=== PATIENT | female | born 1965 | race Caucasian/White ===

== ENCOUNTER → 2016-07-01 | Outpatient (CLI) | payer OTHER ==
--- NOTE | 2016-07-01 13:30 | REPMRS ---
Patient History The patient states she had a clinical breast exam in 06/2016. Family history of premenopausal breast cancer in sister at age 41. Digital Woman Screen Mammo: July 01, 2016 - Exam #: [id number] Bilateral CC and MLO view(s) were taken. Technologist: Kalyani Bhatti, Technologist Prior study comparison: January 16, 2015, digital woman screen mammo performed at [facility]. May 05, 2013, digital woman screen mammo performed at [facility]. March 30, 2012, digital woman screen mammo performed at [facility]. FINDINGS: The breast tissue is almost entirely fat. There has been no change in the appearance of the mammogram from the prior studies. There is no interval development of dominant mass, architectural distortion, or clustered microcalcification typical of malignancy. ASSESSMENT: BI-RADS/ACR category 1 mammogram. Negative. Recommendation Routine screening mammogram of both breasts in 1 year (for women over age 40). This mammogram was interpreted with the aid of an FDA-approved computer-aided dectection system. Electronically Signed By: Rasheed Mendoza MD 07/01/16 [id number]
== END ==
LOC: M WHC 10:35
PROVIDERS: ATTEND Nurse Practitioner Family
DX: Z12.31 Encounter for screening mammogram for malignant neoplasm of breast (principal); Z80.3 Family history of malignant neoplasm of breast

== ENCOUNTER → 2017-10-01 | Outpatient (CLI) | payer OTHER | LOC: M WHC 09:26 | DX: Z12.31 Encounter for screening mammogram for malignant neoplasm of breast (principal); Z80.3 Family history of malignant neoplasm of breast | CPT/HCPCS: 77067 ==

== ENCOUNTER → 2017-10-01 | Outpatient (REF) | payer OTHER | LOC: M SFHCWAGY 09:58 | DX: Z12.4 Encounter for screening for malignant neoplasm of cervix (principal) ==

== ENCOUNTER → 2018-10-04 | Outpatient (REF) | payer OTHER ==
[2018-10-07 14:51] LABS: HPV HYBRID CAPTURE II Negative (Negative)
== END ==
LOC: M SFHCWAGY 10:36
PROVIDERS: ATTEND Nurse Practitioner Family
DX: Z12.4 Encounter for screening for malignant neoplasm of cervix (principal)
CPT/HCPCS: 87624; G0123

== ENCOUNTER → 2018-10-04 | Outpatient (CLI) | payer OTHER ==
--- NOTE | 2018-10-04 12:27 | REPMRS ---
Patient History The patient states she had a clinical breast exam in 10/2018. Family history of premenopausal breast cancer at age 41 in sister, ovarian cancer at age 50 or over in mother. No Hormone Replacement Therapy 3D TOMOSYNTHESIS WAS PERFORMED. Digital Woman Screen Mammo: October 04, 2018 - Exam #: [id number] Bilateral CC and MLO view(s) were taken. Technologist: Kalyani Bhatti, Technologist Prior study comparison: October 01, 2017, digital woman screen mammo performed at [facility]. July 01, 2016, digital woman screen mammo performed at [facility]. FINDINGS: There are scattered fibroglandular densities. There has been no change in the appearance of the mammogram from the prior studies. There is a mild amount of residual fibroglandular tissue which is fairly symmetric. There is no interval development of dominant mass, architectural distortion, or clustered microcalcification suggestive of malignancy. Assessment: BI-RADS/ACR category 1 mammogram. Negative Mammogram. Recommendation Routine screening mammogram in 1 year (for women over age 40). This mammogram was interpreted with the aid of an FDA-approved computer-aided dectection system. Electronically Signed By: Messi Karimi MD 10/04/18 [id number]
== END ==
LOC: M WHC 10:14
PROVIDERS: ATTEND Nurse Practitioner Family
DX: Z12.31 Encounter for screening mammogram for malignant neoplasm of breast (principal); Z80.3 Family history of malignant neoplasm of breast

== ENCOUNTER → 2018-12-16 | Outpatient (REF) | payer OTHER | LOC: M LAB LCGH 11:31 | PROVIDERS: ATTEND Physician Assistant | DX: L57.0 Actinic keratosis (principal) ==

== ENCOUNTER → 2019-04-29 | Outpatient (REF) | payer OTHER | LOC: M LAB REF 15:29 | PROVIDERS: ATTEND Physician Assistant Medical | DX: J02.9 Acute pharyngitis, unspecified (principal) ==

== ENCOUNTER → 2019-06-20 | Outpatient (CLI) | payer OTHER ==
--- NOTE | 2019-06-20 11:28 | REP ---
Clinical: Cough Comparison: none . Technique: PA and lateral. Findings: The mediastinum and cardiac silhouette are normal. The lung fuentes are clear and without acute consolidation, effusion, or pneumothorax. The skeletal structures are intact and normal. Impression: 1. No acute cardiopulmonary process. Electronically Signed by Jorge Travis MD 06/20/2019 11:20 A
== END ==
LOC: M ADAMS 09:51
PROVIDERS: ATTEND Physician Assistant
DX: R05 Cough (principal)

== ENCOUNTER → 2019-10-06 | Outpatient (CLI) | payer OTHER ==
--- NOTE | 2019-10-06 10:47 | REPMRS ---
Patient History The patient states she had a clinical breast exam in October 2019. Family history of premenopausal breast cancer at age 41 in sister, ovarian cancer at age 50 or over in mother. No Hormone Replacement Therapy 3D TOMOSYNTHESIS WAS PERFORMED. [facility] for breast cancer is 18.3%. PAIGE Clark. Digital Woman Screen Mammo: October 06, 2019 - Exam #: [id number] Bilateral CC and MLO view(s) were taken. Technologist: Mariah Oliveira, Technologist Prior study comparison: October 04, 2018, bilateral digital woman screen mammo performed at [facility]. October 01, 2017, digital woman screen mammo performed at [facility]. FINDINGS: There are scattered fibroglandular densities. There has been no change in the appearance of the mammogram from the prior studies. There is a mild amount of residual fibroglandular tissue which is fairly symmetric. There is no interval development of dominant mass, architectural distortion, or clustered microcalcification suggestive of malignancy. Assessment: BI-RADS/ACR category 1 mammogram. Negative Mammogram. Recommendation Routine screening mammogram in 1 year (for women over age 40). This mammogram was interpreted with the aid of an FDA-approved computer-aided dectection system. Electronically Signed By: Messi Karimi MD 10/06/19 [id number]
== END ==
LOC: M WHC 09:30
PROVIDERS: ATTEND Nurse Practitioner Family
DX: Z12.31 Encounter for screening mammogram for malignant neoplasm of breast (principal); Z80.3 Family history of malignant neoplasm of breast; Z80.41 Family history of malignant neoplasm of ovary

== ENCOUNTER 2020-06-02 08:00 | Emergency (ER) | payer OTHER ==
[~2020-06-02] VITALS: Ht 162.6 cm; Wt 113.1 kg
--- OUTSIDE RECORDS SUMMARY | 2020-06-02 08:08 | CCD ---
Author Author [facility] Organization [facility] Address Unknown Phone Unavailable Care Team Providers Care Commercial Photographer Name Role Phone Nayely Miner PA Unavailable Unavailable Isidra, D Curt PA Unavailable Unavailable Isidra, D Curt PA Unavailable Unavailable Isidra, D Curt PA Unavailable Unavailable Isidra, D Curt PA Unavailable Unavailable Isidra, D Curt PA Unavailable Unavailable Isidra, D Curt PA Unavailable Unavailable Isidra, D Curt PA Unavailable Unavailable Isidra, D Curt PA Unavailable Unavailable Isidra, D Curt PA Unavailable Unavailable Isidra, D Curt PA Unavailable Unavailable Isidra, D Curt PA Unavailable Unavailable Isidra, D Curt PA Unavailable Unavailable Isidra, D Curt PA Unavailable Unavailable Isidra, D Curt PA Unavailable Unavailable Isidra, D Curt PA Unavailable Unavailable Isidra, D Curt PA Unavailable Unavailable Isidra, D Curt PA Unavailable Unavailable Isidra, D Curt PA Unavailable Unavailable Isidra, D Curt PA Unavailable Unavailable Isidra, D Curt PA Unavailable Unavailable Isidra, D Curt PA Unavailable Unavailable Isidra, D Curt PA Unavailable Unavailable Isidra, D Curt PA Unavailable Unavailable Isidra, D Curt PA Unavailable Unavailable Isidra, D Curt PA Unavailable Unavailable Isidra, D Curt PA Unavailable Unavailable Isidra, D Curt PA Unavailable Unavailable Isidra, D Curt PA Unavailable Unavailable Isidra, D Curt PA Unavailable Unavailable Isidra, D Curt PA Unavailable Unavailable Isidra, D Curt PA Unavailable Unavailable Isidra, D Curt PA Unavailable Unavailable Isidra, D Curt PA Unavailable Unavailable Isidra, D Curt PA Unavailable Unavailable Isidra, D Curt PA Unavailable Unavailable Isidra, D Curt PA Unavailable Unavailable Isidra, D Curt PA Unavailable Unavailable Isidra, D Curt PA Unavailable Unavailable Isidra, D Curt PA Unavailable Unavailable Isidra, D Curt PA Unavailable Unavailable Isidra, D Curt PA Unavailable Unavailable Isidra, D Curt PA Unavailable Unavailable Isidra, D Curt PA Unavailable Unavailable Isidra, D Curt PA Unavailable Unavailable Isidra, D Curt PA Unavailable Unavailable Isidra, D Curt PA Unavailable Unavailable Isidra, D Curt PA Unavailable Unavailable Isidra, D Curt PA Unavailable Unavailable Isidra, D Curt PA Unavailable Unavailable Isidra, D Curt PA Unavailable Unavailable Isidra, D Curt PA Unavailable Unavailable Isidra, D Curt PA Unavailable Unavailable Isidra, D Curt PA Unavailable Unavailable Isidra, D Curt PA Unavailable Unavailable Isidra, D Curt PA Unavailable Unavailable Isidra, D Curt PA Unavailable Unavailable Isidra, D Curt PA Unavailable Unavailable Isidra, D Curt PA Unavailable Unavailable Isidra, D Curt PA Unavailable Unavailable Isidra, D Curt PA Unavailable Unavailable Isidra, D Curt PA Unavailable Unavailable Isidra, D Curt PA Unavailable Unavailable Isidra, D Curt PA Unavailable Unavailable Isidra, D Curt PA Unavailable Unavailable Isidra, D Curt PA Unavailable Unavailable Isidra, D Curt PA Unavailable Unavailable Isidra, D Curt PA Unavailable Unavailable Isidra, D Curt PA Unavailable Unavailable Isidra, D Curt PA Unavailable Unavailable Isidra, D Curt PA Unavailable Unavailable Isidra, D Curt PA Unavailable Unavailable Isidra, D Curt PA Unavailable Unavailable Isidra, D Curt PA Unavailable Unavailable Isidra, D Curt PA Unavailable Unavailable Isidra, D Curt PA Unavailable Unavailable Isidra, D Curt PA Unavailable Unavailable Isidra, D Curt PA Unavailable Unavailable Isidra, D Curt PA Unavailable Unavailable Isidra, D Curt PA Unavailable Unavailable Isidra, D Curt PA Unavailable Unavailable Isidra, D Curt PA Unavailable Unavailable Isidra, D Curt PA Unavailable Unavailable Isidra, D Curt PA Unavailable Unavailable Isidra, D Curt PA Unavailable Unavailable Isidra, D Curt PA Unavailable Unavailable Isidra, D Curt PA Unavailable Unavailable Isidra, D Curt PA Unavailable Unavailable Isidra, D Curt PA Unavailable Unavailable Isidra, D Curt PA Unavailable Unavailable Isidra, D Curt PA Unavailable Unavailable Isidra, D Curt PA Unavailable Unavailable Isidra, D Curt PA Unavailable Unavailable Isidra, D Curt PA Unavailable Unavailable Isidra, D Curt PA Unavailable Unavailable Isidra, D Curt PA Unavailable Unavailable Isidra, D Curt PA Unavailable Unavailable Isidra, D Curt PA Unavailable Unavailable Isidra, D Curt PA Unavailable Unavailable Isidra, D Curt PA Unavailable Unavailable Isidra, D Curt PA Unavailable Unavailable Isidra, D Curt PA Unavailable Unavailable Isidra, D Curt PA Unavailable Unavailable Isidra, D Curt PA Unavailable Unavailable Isidra, D Curt PA Unavailable Unavailable Isidra, D Curt PA Unavailable Unavailable Isidra, D Curt PA Unavailable Unavailable Isidra, D Curt PA Unavailable Unavailable Isidra, D Curt PA Unavailable Unavailable Isidra, D Curt PA Unavailable Unavailable Isidra, D Curt PA Unavailable Unavailable Isidra, D Curt PA Unavailable Unavailable Isidra, D Curt PA Unavailable Unavailable Isidra, D Curt PA Unavailable Unavailable Isidra, D Curt PA Unavailable Unavailable Isidra, D Curt PA Unavailable Unavailable Isidra, D Curt PA Unavailable Unavailable Isidra, D Curt PA Unavailable Unavailable Isidra, D Curt PA Unavailable Unavailable Isidra, D Curt PA Unavailable Unavailable Isidra, D Curt PA Unavailable Unavailable Isidra, D Curt PA Unavailable Unavailable Isidra, D Curt PA Unavailable Unavailable Isidra, D Curt PA Unavailable Unavailable Isidra, D Curt PA Unavailable Unavailable Isidra, D Curt PA Unavailable Unavailable Isidra, D Curt PA Unavailable Unavailable Isidra, D Curt PA Unavailable Unavailable Isidra, D Curt PA Unavailable Unavailable Isidra, D Curt PA Unavailable Unavailable Isidra, D Curt PA Unavailable Unavailable Isidra, D Curt PA Unavailable Unavailable Isidra, D Curt PA Unavailable Unavailable Isidra, D Curt PA Unavailable Unavailable Isidra, D Curt PA Unavailable Unavailable Isidra, D Curt PA Unavailable Unavailable Isidra, D Curt PA Unavailable Unavailable Isidra, D Curt PA Unavailable Unavailable Isidra, D Curt PA Unavailable Unavailable Isidra, D Curt PA Unavailable Unavailable Isidra, D Curt PA Unavailable Unavailable Isidra, D Curt PA Unavailable Unavailable Isidra, D Curt PA Unavailable Unavailable Isidra, D Curt PA Unavailable Unavailable Isidra, D Curt PA Unavailable Unavailable Isidra, D Curt PA Unavailable Unavailable Isidra, D Curt PA Unavailable Unavailable Isidra, D Curt PA Unavailable Unavailable Isidra, D Curt PA Unavailable Unavailable Isidra, D Curt PA Unavailable Unavailable Isidra, D Curt PA Unavailable Unavailable Isidra, D Curt PA Unavailable Unavailable Isidra, D Curt PA Unavailable Unavailable Isidra, D Curt PA Unavailable Unavailable Isidra, D Curt PA Unavailable Unavailable Isidra, D Crut PA Unavailable Unavailable Isidra, D Curt PA Unavailable Unavailable Isidra, D Curt PA Unavailable Unavailable Isidra, D Curt PA Unavailable Unavailable Isidra, D Curt PA Unavailable Unavailable Isidra, D Curt PA Unavailable Unavailable Isidra, D Curt PA Unavailable Unavailable Isidra, D Curt PA Unavailable Unavailable Isidra, D Curt PA Unavailable Unavailable Isidra, D Curt PA Unavailable Unavailable Isidra, D Curt PA Unavailable Unavailable Isidra, D Curt PA Unavailable Unavailable Isidra, D Curt PA Unavailable Unavailable Isidra, D Curt PA Unavailable Unavailable Isidra, D Curt PA Unavailable Unavailable Isidra, D Curt PA Unavailable Unavailable Isidra, D Curt PA Unavailable Unavailable Isidra, D Curt PA Unavailable Unavailable Isidra, D Curt PA Unavailable Unavailable Isidra, D Curt PA Unavailable Unavailable Isidra, D Curt PA Unavailable Unavailable Isidra, D Curt PA Unavailable Unavailable Isidra, D Curt PA Unavailable Unavailable Isidra, D Curt PA Unavailable Unavailable Isidra, D Curt PA Unavailable Unavailable Isidra, D Curt PA Unavailable Unavailable Isidra, D Curt PA Unavailable Unavailable Isidra, D Curt PA Unavailable Unavailable Isidra, D Curt PA Unavailable Unavailable Isidra, D Curt PA Unavailable Unavailable Isidra, D Curt PA Unavailable Unavailable Isidra, D Curt PA Unavailable Unavailable Isidra, D Curt PA Unavailable Unavailable Isidra, D Curt PA Unavailable Unavailable RING, K RAYRAY PA Unavailable Unavailable RING, K RAYRAY PA Unavailable Unavailable RING, K RAYRAY PA Unavailable Unavailable RING, K RAYRAY PA Unavailable Unavailable RING, K RAYRAY PA Unavailable Unavailable RING, K RAYRAY PA Unavailable Unavailable RING, K RAYRAY PA Unavailable Unavailable RING, K RAYRAY PA Unavailable Unavailable RING, K RAYRAY PA Unavailable Unavailable RING, K RAYRAY PA Unavailable Unavailable RING, K RAYRAY PA Unavailable Unavailable RING, K RAYRAY PA Unavailable Unavailable RING, K RAYRAY PA Unavailable Unavailable RING, K RAYRAY PA Unavailable Unavailable RING, K RAYRAY PA Unavailable Unavailable RING, K RAYRAY PA Unavailable Unavailable RING, K RAYRAY PA Unavailable Unavailable RING, K RAYRAY PA Unavailable Unavailable RING, K RAYRAY PA Unavailable Unavailable RING, K RAYRAY PA Unavailable Unavailable Spearance, J Juan J PA Unavailable Unavailable Spearance, J Juan J PA Unavailable Unavailable Spearance, J Juan J PA Unavailable Unavailable Spearance, J Juan J PA Unavailable Unavailable Spearance, J Juan J PA Unavailable Unavailable Spearance, J Juan J PA Unavailable Unavailable Spearance, J Juan J PA Unavailable Unavailable Spearance, J Juan J PA Unavailable Unavailable Spearance, J Juan J PA Unavailable Unavailable Spearance, J Juan J PA Unavailable Unavailable Spearance, J Juanj PA Unavailable Unavailable Spearance, J Juan J PA Unavailable Unavailable Spearance, J Juan J PA Unavailable Unavailable Spearance, J Juan J PA Unavailable Unavailable Spearance, J Juan J PA Unavailable Unavailable Spearance, J Juan J PA Unavailable Unavailable Spearance, J Juan J PA Unavailable Unavailable Spearance, J Juan J PA Unavailable Unavailable Spearance, J Juan J PA Unavailable Unavailable Spearance, J Juan J PA Unavailable Unavailable Isidra, D Curt PA Unavailable Unavailable Isidra, D Curt PA Unavailable Unavailable Isidra, D Curt PA Unavailable Unavailable Isidra, D Curt PA Unavailable Unavailable Isidra, D Curt PA Unavailable Unavailable Isidra, D Curt PA Unavailable Unavailable Isidra, D Curt PA Unavailable Unavailable Isidra, D Curt PA Unavailable Unavailable Isidra, D Curt PA Unavailable Unavailable Isidra, D Curt PA Unavailable Unavailable Isidra, D Curt PA Unavailable Unavailable Isidra, D Curt PA Unavailable Unavailable Isidra, D Curt PA Unavailable Unavailable Isidra, D Curt PA Unavailable Unavailable Isidra, D Curt PA Unavailable Unavailable Isidra, D Curt PA Unavailable Unavailable Isidra, D Curt PA Unavailable Unavailable Isidra, D Curt PA Unavailable Unavailable Isidra, D Curt PA Unavailable Unavailable Isidra, D Curt PA Unavailable Unavailable Isidra, D Curt PA Unavailable Unavailable Isidra, D Curt PA Unavailable Unavailable Isidra, D Curt PA Unavailable Unavailable Isidra, D Curt PA Unavailable Unavailable Isidra, D Curt PA Unavailable Unavailable Isidra, D Curt PA Unavailable Unavailable Isidra, D Curt PA Unavailable Unavailable Isidra, D Curt PA Unavailable Unavailable Isidra, D Curt PA Unavailable Unavailable Isidra, D Curt PA Unavailable Unavailable Isidra, D Curt PA Unavailable Unavailable Isidra, D Curt PA Unavailable Unavailable Isidra, D Curt PA Unavailable Unavailable Isidra, D Curt PA Unavailable Unavailable Isidra, D Curt PA Unavailable Unavailable Isidra, D Curt PA Unavailable Unavailable Isidra, D Curt PA Unavailable Unavailable Isidra, D Curt PA Unavailable Unavailable Isidra, D Curt PA Unavailable Unavailable Isidra, D Curt PA Unavailable Unavailable Isidra, D Curt PA Unavailable Unavailable Isidra, D Curt PA Unavailable Unavailable Isidra, D Curt PA Unavailable Unavailable Isidra, D Curt PA Unavailable Unavailable Isidra, D Curt PA Unavailable Unavailable Isidra, D Curt PA Unavailable Unavailable Isidra, D Curt PA Unavailable Unavailable Isidra, D Curt PA Unavailable Unavailable Isidra, D Curt PA Unavailable Unavailable Isidra, D Curt PA Unavailable Unavailable Isidra, D Curt PA Unavailable Unavailable Isidra, D Curt PA Unavailable Unavailable Isidra, D Curt PA Unavailable Unavailable Isidra, D Curt PA Unavailable Unavailable Isidra, D Curt PA Unavailable Unavailable Isidra, D Curt PA Unavailable Unavailable Isidra, D Curt PA Unavailable Unavailable Isidra, D Curt PA Unavailable Unavailable Isidra, D Curt PA Unavailable Unavailable Isidra, D Curt PA Unavailable Unavailable Isidra, D Curt PA Unavailable Unavailable Isidra, D Curt PA Unavailable Unavailable Isidra, D Curt PA Unavailable Unavailable TRACEY (EVA), Francine UREÑA MD Unavailable Unavailab le TRACEY (EVA), Francine UREÑA MD Unavailable Unavailab le TRACEY (EVA), Francine UREÑA MD Unavailable Unavailab le TRACEY (EVA), Francine UREÑA MD Unavailable Unavailab le TRACEY (EVA), Francine UREÑA MD Unavailable Unavailab le TRACEY (EVA), Francine UREÑA MD Unavailable Unavailab le TRACEY (EVA), Francine UREÑA MD Unavailable Unavailab le TRACEY (EVA), Francine UREÑA MD Unavailable Unavailab le TRACEY (EVA), Francine UREÑA MD Unavailable Unavailab le TRACEY (EVA), Francine UREÑA MD Unavailable Unavailab le TRACEY (EVA), Francine UREÑA MD Unavailable Unavailab le TRACEY (EVA), Francine UREÑA MD Unavailable Unavailab le TRACEY (EVA), Francine UREÑA MD Unavailable Unavailab le TRACEY (EVA), Francine UREÑA MD Unavailable Unavailab le TRACEY (EVA), Francine UREÑA MD Unavailable Unavailab le TRACEY (EVA), Francine UREÑA MD Unavailable Unavailab le TRACEY (EVA), Francine UREÑA MD Unavailable Unavailab le TRACEY (EVA), Francine UREÑA MD Unavailable Unavailab le TRACEY (EVA), Francine UREÑA MD Unavailable Unavailab le TRACEY (EVA), Francine UREÑA MD Unavailable Unavailab le TRACEY (EVA), Francine UREÑA MD Unavailable Unavailab le TRACEY (EVA), Francine UREÑA MD Unavailable Unavailab le TRACEY (EVA), Francine UREÑA MD Unavailable Unavailab le TRACEY (EVA), Francine UREÑA MD Unavailable Unavailab le TRACEY (EVA), Francine UREÑA MD Unavailable Unavailab le TRACEY (EVA), Francine UREÑA MD Unavailable Unavailab le TRACEY (EVA), Francine UREÑA MD Unavailable Unavailab le TRACEY (EVA), Francine UREÑA MD Unavailable Unavailab le TRACEY (EVA), Francine UREÑA MD Unavailable Unavailab le TRACEY (EVA), Francine UREÑA MD Unavailable Unavailab le TRACEY (EVA), Francine UREÑA MD Unavailable Unavailab le TRACEY (EVA), Francine UREÑA MD Unavailable Unavailab le TRACEY (EVA), Francine UREÑA MD Unavailable Unavailab le TRACEY (EVA), Francine UREÑA MD Unavailable Unavailab le TRACEY (EVA), Francine UREÑA MD Unavailable Unavailab le TARCEY (EVA), Francine UREÑA MD Unavailable Unavailab le TRACEY (EVA), Francine UREÑA MD Unavailable Unavailab le TRACEY (EVA), Francine UREÑA MD Unavailable Unavailab le TRACEY (EVA), Francine UREÑA MD Unavailable Unavailab le TRACEY (EVA), Francine UREÑA MD Unavailable Unavailab le TRACEY (EVA), Francine UREÑA MD Unavailable Unavailab le TRACEY (EVA), Francine UREÑA MD Unavailable Unavailab le TRACEY (EVA), Francine UREÑA MD Unavailable Unavailab le TRACEY (EVA), Francine UREÑA MD Unavailable Unavailab le TRACEY (EVA), Francine UREÑA MD Unavailable Unavailab le TRACEY (EVA), Francine UREÑA MD Unavailable Unavailab le TRACEY (EVA), Francine UREÑA MD Unavailable Unavailab le TRACEY (EVA), Francine UREÑA MD Unavailable Unavailab le TRACEY (EVA), Francine UREÑA MD Unavailable Unavailab le TRACEY (EVA), Francine UREÑA MD Unavailable Unavailab le TRACEY (EVA), Francine UREÑA MD Unavailable Unavailab le TRACEY (EVA), Francine UREÑA MD Unavailable Unavailab le TRACEY (EVA), Francine UREÑA MD Unavailable Unavailab le TRACEY (EVA), Francine UREÑA MD Unavailable Unavailab le TRACEY (EVA), Francine UREÑA MD Unavailable Unavailab le TRACEY (EVA), Francine UREÑA MD Unavailable Unavailab le TRACEY (EVA), Francine UREÑA MD Unavailable Unavailab le TRACEY (EAV), Francine UREÑA MD Unavailable Unavailab le TRACEY (EVA), Francine UREÑA MD Unavailable Unavailab le TRACEY (EVA), Francine UREÑA MD Unavailable Unavailab le TRACEY (EVA), Francine UREÑA MD Unavailable Unavailab le TRACEY (EVA), Francine UREÑA MD Unavailable Unavailab le TRACEY (EVA), Francine UREÑA MD Unavailable Unavailab le TRACEY (EVA), Francine UREÑA MD Unavailable Unavailab le TRACEY (EVA), Francine UREÑA MD Unavailable Unavailab le TRACEY (EVA), Francine UREÑA MD Unavailable Unavailab le TRACEY (EVA), Francine UREÑA MD Unavailable Unavailab le TRACEY (EVA), Francine UREÑA MD Unavailable Unavailab le TRACEY (EVA), Francine UREÑA MD Unavailable Unavailab le TRACEY (EVA), Francine UREÑA MD Unavailable Unavailab le TRACEY (EVA), Francine UREÑA MD Unavailable Unavailab le TRACEY (EVA), Francine UREÑA MD Unavailable Unavailab le TRACEY (EVA), Francine UREÑA MD Unavailable Unavailab le TRACEY (EVA), Francine UREÑA MD Unavailable Unavailab le TRACEY (EVA), Francine UREÑA MD Unavailable Unavailab le TRACEY (EVA), Francine UREÑA MD Unavailable Unavailab le TRACEY (EVA), Francine UREÑA MD Unavailable Unavailab le TRACEY (EVA), Francine UREÑA MD Unavailable Unavailab le TRACEY (EVA), Francine UREÑA MD Unavailable Unavailab le TRACEY (EVA), Francine UREÑA MD Unavailable Unavailab le TRACEY (EVA), Francine UREÑA MD Unavailable Unavailab le TRACEY (EVA), Francine UREÑA MD Unavailable Unavailab le TRACEY (EVA), Francine UREÑA MD Unavailable Unavailab le TRACEY (EVA), Francine UREÑA MD Unavailable Unavailab le TRACEY (EVA), Francine UREÑA MD Unavailable Unavailab le TRACEY (EVA), Francine UREÑA MD Unavailable Unavailab le TRACEY (EVA), Francine UREÑA MD Unavailable Unavailab le TRACEY (EVA), Francine UREÑA MD Unavailable Unavailab le TRACEY (EVA), Francine UREÑA MD Unavailable Unavailab le TRACEY (EVA), Francine UREÑA MD Unavailable Unavailab le TRACEY (EVA), Francine UREÑA MD Unavailable Unavailab le TRACEY (EVA), Francine UREÑA MD Unavailable Unavailab le Werchinski, L Silvina PA Unavailable Unavailable Werchinski, L Silvina PA Unavailable Unavailable Werchinski, L Silvina PA Unavailable Unavailable Werchinski, L Silvina PA Unavailable Unavailable Werchinski, L Silvina PA Unavailable Unavailable Werchinski, L Silvina PA Unavailable Unavailable Werchinski, L Silvina PA Unavailable Unavailable Werchinski, L Silvina PA Unavailable Unavailable Werchinski, L Silvina PA Unavailable Unavailable Werchinski, L Silvina PA Unavailable Unavailable Werchinski, L Silvina PA Unavailable Unavailable Werchinski, L Silvina PA Unavailable Unavailable Werchinski, L Silvina PA Unavailable Unavailable Werchinski, L Silvina PA Unavailable Unavailable Werchinski, L Silvina PA Unavailable Unavailable Werchinski, L Silvina PA Unavailable Unavailable Werchinski, L Silvina PA Unavailable Unavailable Werchinski, L Silvina PA Unavailable Unavailable Werchinski, L Silvina PA Unavailable Unavailable Werchinski, L Silvina PA Unavailable Unavailable Werchinski, L Silvina PA Unavailable Unavailable Werchinski, L Silvina PA Unavailable Unavailable Werchinski, L Silvina PA Unavailable Unavailable Werchinski, L Silvina PA Unavailable Unavailable Werchinski, L Silvina PA Unavailable Unavailable Werchinski, L Silvina PA Unavailable Unavailable Werchinski, L Silvina PA Unavailable Unavailable Werchinski, L Silvina PA Unavailable Unavailable Werchinski, L Silvina PA Unavailable Unavailable Werchinski, L Silvina PA Unavailable Unavailable Werchinski, L Silvina PA Unavailable Unavailable Werchinski, L Silvina PA Unavailable Unavailable Werchinski, L Silvina PA Unavailable Unavailable Isidra, D Curt PA Unavailable Unavailable Isidra, D Curt PA Unavailable Unavailable Isidra, D Curt PA Unavailable Unavailable Isidra, D Curt PA Unavailable Unavailable Isidra, D Curt PA Unavailable Unavailable Isidra, D Curt PA Unavailable Unavailable Isidra, D Curt PA Unavailable Unavailable Isidra, D Curt PA Unavailable Unavailable Isidra, D Curt PA Unavailable Unavailable Isidra, D Curt PA Unavailable Unavailable Isidra, D Curt PA Unavailable Unavailable Isidra, D Curt PA Unavailable Unavailable Isidra, D Curt PA Unavailable Unavailable Isidra, D Curt PA Unavailable Unavailable Isidra, D Curt PA Unavailable Unavailable Isidra, D Curt PA Unavailable Unavailable Isidra, D Curt PA Unavailable Unavailable Isidra, D Curt PA Unavailable Unavailable Isidra, D Curt PA Unavailable Unavailable Isidra, D Curt PA Unavailable Unavailable Isidra, D Curt PA Unavailable Unavailable Isidra, D Curt PA Unavailable Unavailable Isidra, D Curt PA Unavailable Unavailable Isidra, D Curt PA Unavailable Unavailable Isidra, D Curt PA Unavailable Unavailable Isidra, D Curt PA Unavailable Unavailable Isidra, D Curt PA Unavailable Unavailable Isidra, D Curt PA Unavailable Unavailable Isidra, D Curt PA Unavailable Unavailable Isidra, D Curt PA Unavailable Unavailable Isidra, D Curt PA Unavailable Unavailable Isidra, D Curt PA Unavailable Unavailable Isidra, D Curt PA Unavailable Unavailable Isidra, D Curt PA Unavailable Unavailable Isidra, D Curt PA Unavailable Unavailable Isidra, D Ucrt PA Unavailable Unavailable Isidra, D Curt PA Unavailable Unavailable Isidra, D Curt PA Unavailable Unavailable Isidra, D Curt PA Unavailable Unavailable Isidra, D Curt PA Unavailable Unavailable Isidra, D Curt PA Unavailable Unavailable Isidra, D Curt PA Unavailable Unavailable Isidra, D Curt PA Unavailable Unavailable Isidra, D Curt PA Unavailable Unavailable Isidra, D Curt PA Unavailable Unavailable Isidra, D Curt PA Unavailable Unavailable Isidra, D Curt PA Unavailable Unavailable Isidra, D Curt PA Unavailable Unavailable Isidra, D Curt PA Unavailable Unavailable Isidra, D Curt PA Unavailable Unavailable Isidra, D Curt PA Unavailable Unavailable Isidra, D Curt PA Unavailable Unavailable Isidra, D Curt PA Unavailable Unavailable Isidra, D Curt PA Unavailable Unavailable Isidra, D Curt PA Unavailable Unavailable Isidra, D Curt PA Unavailable Unavailable Isidra, D Curt PA Unavailable Unavailable Isidra, D Curt PA Unavailable Unavailable Isidra, D Curt PA Unavailable Unavailable Isidra, D Curt PA Unavailable Unavailable Isidra, D Curt PA Unavailable Unavailable Isidra, D Curt PA Unavailable Unavailable Isidra, D Curt PA Unavailable Unavailable Re-disclosure Warning The records that you are about to access may contain information from federally-assisted alcohol or drug abuse programs. If such information is present, then the following federally mandated warning applies: This information has been disclosed to you from records protected by federal confidentiality rules (42 CFR part 2). The federal rules prohibit you from making any further disclosure of this information unless further disclosure is expressly permitted by the written consent of the person to whom it pertains or as otherwise permitted by 42 CFR part 2. A general authorization for the release of medical or other information is NOT sufficient for this purpose. The Federal rules restrict any use of the information to criminally investigate or prosecute any alcohol or drug abuse patient.The records that you are about to access may contain highly sensitive health information, the redisclosure of which is protected by Article 27-F of the [facility] Public [employer] law. If you continue you may have access to information: Regarding HIV / AIDS; Provided by facilities licensed or operated by the [facility] Office [facility] Mental [facility]; or Provided by the [facility] Office for People With Developmental Disabilities. If such information is present, then the following [facility] mandated warning applies: This information has been disclosed to you from confidential records which are protected by state law. State law prohibits you from making any further disclosure of this information without the specific written consent of the person to whom it pertains, or as otherwise permitted by law. Any unauthorized further disclosure in violation of state law may result in a fine or detention sentence or both. A general authorization for the release of medical or other information is NOT sufficient authorization for further disc losure. Family History Family Member Name Family Member Gender Family Member Status Date o f Status Description Data Source(s) Unknown Unknown Problem [facility] ([facility]) Unknown Unknown Problem [facility] ([facility]) Unknown Unknown Problem [facility] ([facility]) Encounters Encounter Providers Location Date Indications Data Source(s ) Outpatient Attender: Curt DRAPER [facility] 08/2020 02:15:00 PM EST [facility] Outpatient Attender: Curt DRAPER [facility] 05/2019 03:15:00 PM EDT [facility] ([facility] [place] [address] [address] 10/06/2019 12:00:00 AM EDT eCW1 ([facility]) Outpatient Attender: Curt DRAPER [place] [facility] 03:00:00 PM EDT [facility] ([facility] Outpatient Referrer: Curt DRAPER 06/28/2019 12:41:00 PM EST [facility] Outpatient Attender: Curt DURÁN eferrer: Curt Miner PAConsultant: Curt DRAPER 06/27/2019 04:11:00 PM EST - 06/27/2019 04:21: 00 PM EST [facility] Outpatient Attender: Curt DRAPER [place] [facility] 09:40:00 AM EST MED[facility] ([facility] Outpatient Attender: RAYRAY Mathews [facility] 06/20/2019 07:45:00 AM EST [facility] ([facility]) Attender: ADELITA WEBB ([place]) MDReferrer: Francine DRAPER 06/15/2019 08:20:02 PM EST [facility] Attender: ADELITA WEBB ([place]) MDReferrer: Francine DRAPER 06/15/2019 08:20:02 PM EST [facility] Outpatient Attender: Silvina Baeza PAReferrer: Curt DRAPER 06/15/2019 01:58:00 PM EST [facility] Attender: ADELITA WEBB ([place]) MDReferrer: Francine DRAPER 06/14/2019 08:20:02 PM EST [facility] Attender: ADELITA WEBB ([place]) MDReferrer: Francine DRAPER 06/14/2019 08:20:02 PM EST [facility] Outpatient Attender: Curt DRAPER [place] [facility] 08/2019 12:15:00 PM EST MED[facility] ([facility] Outpatient Attender: Juan J DRAPER Bita Mathews Isabel stacey 04/29/2019 11:00:00 AM EST MED[facility] ([facility]) Outpatient Attender: Curt DRAPER [place] [facility] 09:40:00 AM EST [facility] ([facility] Medications Medication Brand Name Start Date Product Form Dose Route Admi nistrative Instructions Pharmacy Instructions Status Indications Reaction Description Data Source(s) 25 mg 01/17/2020 12:00:00 AM EDT tablet 30 TAKE ONE TABLET BY MOUTH EVERY DAY TAKE ONE TABLET BY MOUTH EVERY DAY SOLD: 01/18/2020 [facility] 125 mcg 01/17/2020 12:00:00 AM EDT tablet 30 TAKE ONE TABLET BY MOUTH EVERY DAY TAKE ONE TABLET BY MOUTH EVERY DAY SOLD: 01/18/2020 [facility] 50 mg 01/17/2020 12:00:00 AM EDT tablet extended release 24 hr 30 TAKE ONE TABLET BY MOUTH EVERY DAY TAKE ONE TABLET BY MOUTH EVERY DAY SOLD: 01/18/2020 [facility] 24 HR metoprolol succinate 50 MG Extended Release Oral Tablet Metoprolol Succinate ER 01/16/2020 12:00:00 AM EDT active [facility] ([facility] Loperamide Hydrochloride 2 MG Oral Capsule Loperamide HCL 06/27/2019 12:00:00 AM EST ORAL completed [facility] ([facility] 2 mg 06/27/2019 12:00:00 AM EST capsule 30 TAKE 2 CAPSULES BY MOUTH IMMEDIATELY, FOLLOWED BY 1 CAPSULE FOR EVERY LOOSE STOOL, MAX DAILY DOSE = 8 CAPSULES TAKE 2 CAPSULES BY MOUTH IMMEDIATELY, FO LLOWED BY 1 CAPSULE FOR EVERY LOOSE STOOL, MAX DAILY DOSE = 8 CAPSULES SOLD: 06/27/2019 [facility] Ondansetron 4 MG Oral Tablet Ondansetron HCL 06/27/2019 12:00:[address] ORAL completed MED[facility] ([facility] 4 mg 06/27/2019 12:00:00 AM EST tablet 30 TAKE ONE TABLET BY MOUTH EVERY 8 HOURS NEEDED FOR NAUSEA TAKE ONE TABLET BY MOUTH EVERY 8 HOURS A S NEEDED FOR NAUSEA SOLD: 06/27/2019 [facility] 100 mg 06/20/2019 12:00:00 AM EST capsule 20 TAKE ONE CAPSULE BY MOUTH TWICE A DAY FOR 10 DAYS TAKE ONE CAPSULE BY MOUTH TWICE A DAY FOR 10 DAYS SOLD : 06/20/2019 [facility] 200 ACTUAT Albuterol 0.09 MG/ACTUAT Metered Dose Inhaler [Pr oAir] Proair HFA 06/20/2019 12:00:00 AM EST ORAL active MEDENT ([facility]) Prednisone 20 MG Oral Tablet Prednisone 06/20/2019 12:00:00 AM EST ORAL active MEDENT ([facility]) Doxycycline Monohydrate 100 MG Oral Capsule Doxycycline [place] hydrate 06/20/2019 12:00:00 AM EST ORAL completed MED[facility] ([facility]) Prednisone 20 MG Oral Tablet Prednisone 06/20/2019 12:00:00 AM EST ORAL completed MEDENT ([facility]) Doxycycline Monohydrate 100 MG Oral Capsule Doxycycline [place] hydrate 06/20/2019 12:00:00 AM EST ORAL active M EDENT ([facility]) 90 mcg/actuation 06/20/2019 12:00:00 AM EST HFA aerosol inha ler 8 INHALE TWO PUFFS BY MOUTH EVERY 4 TO 6 HOURS NEEDED FOR COUGH AND WHEEZING INHALE TWO PUFFS BY MOUTH EVERY 4 TO 6 HOURS NEEDED FOR COUGH AND WHEEZING SOLD: 06/20/2019 [facility] 20 mg 06/20/2019 12:00:00 AM EST tablet 8 TAKE ONE TABLET BY MOUTH TWICE A DAY FOR 4 DAYS TAKE ONE TABLET BY MOUTH TWICE A DAY FOR 4 DAYS SOLD: 2019 [facility] 30 ACTUAT fluticasone furoate 0.1 MG/ACT UAT / vilanterol 0.025 MG/ACTUAT Dry Powder Inhaler [Breo] Breo Ellipta 06/07/2019 12:00:00 AM EST OR AL active [facility] ([facility] benzonatate 100 MG Oral Capsule BENZONATATE 06/07/2019 12:00:00 AM EST capsule 30 TAKE TWO CAPSULES BY MOUTH T HREE TIMES A DAY WITH FULL GLASS OF WATER FOR COUGH TAKE TWO CAPSULES BY MOUTH THREE TIMES A DAY WITH FULL GLASS OF WATER FOR COUGH SOLD: 06/27/2019 [facility] benzonatate 100 MG Oral Capsule [Elidasalpierre Wallace] Tessalon P erles 06/07/2019 12:00:00 AM EST ORAL completed [facility] ([facility] benzonatate 100 MG Oral Capsule BENZONATATE 06/07/2019 12:00:00 AM EST capsule 30 TAKE TWO CAPSULES BY MOUTH T HREE TIMES A DAY WITH FULL GLASS OF WATER FOR COUGH TAKE TWO CAPSULES BY MOUTH THREE TIMES A DAY WITH FULL GLASS OF WATER FOR COUGH SOLD: 06/07/2019 [facility] Insurance Providers Payer name Policy type / Coverage type Policy ID Covered libertarian ID Covered libertarian's relationship to kuo Policy Kuo Plan Information [facility] [id number] SP [id number] 18 [id number] [facility] O [id number] S [id number] [facility] Management [id number] 0 [id number] [place] [id number] [facility] [id number] ANSI-Commercial [id number] ANSI-Commercial [id number] ANSI-Commercial [id number] [facility] Health Maintenance Organization (HMO) [id number] Self [id number] [employer] [id number] SP [id number] [employer] [id number] Self [id number] [place] Self [employer] [id number] SP [id number] [facility] HEALTH INSURANCE [id number] SP [id number] [facility] P[facility] P [id number] S [id number] Problems, Conditions, and Diagnoses Code Display Name Description Problem Type Effective Dates Data Source(s) R05 Cough Cough Diagnosis 06/27/2019 04:11:00 PM [facility] R110 Nausea Nausea Diagnosis 06/27/2019 04:11:00 PM [facility] Results ID Date Data Source [id number] 06/27/2019 11:07:00 AM EST MED[facility] ([facility] Name Value Range Interpretation Code Description Data Karli rce(s) Supporting Document(s) Glu 100 mg/dL 70-110 [facility] CHRONIC KIDNEY DISEASE STAGING PER NKF: MALE GFR INTERPRETATION: 20-49 YRS: >60 mL/min Normal 50-59 YRS: >56 mL/min Normal 60-69 YRS: >49 mL/min Normal 70-79 YRS: >42 mL/min Normal 80 and above >35 mL/min Normal FEMALE GRF INTERPRETATION: 20-39 YRS: >60 mL/min Normal 40-49 YRS: >58 mL/min Normal 50-59 YRS: >51 mL/min Normal 60-69 YRS: >45 mL/min Normal 70-79 YRS: >39 mL/min Normal 80 and above >32 mL/min Normal BUN/Creatinine Ratio 17.7 CALC MEDENT ([facility] CHRONIC KIDNEY DISEASE STAGING PER NKF: MALE GFR INTERPRETATION: 20-49 YRS: >60 mL/min Normal 50-59 YRS: >56 mL/min Normal 60-69 YRS: >49 mL/min Normal 70-79 YRS: >42 mL/min Normal 80 and above >35 mL/min Normal FEMALE GRF INTERPRETATION: 20-39 YRS: >60 mL/min Normal 40-49 YRS: >58 mL/min Normal 50-59 YRS: >51 mL/min Normal 60-69 YRS: >45 mL/min Normal 70-79 YRS: >39 mL/min Normal 80 and above >32 mL/min Normal BUN 16 mg/dL 8-23 [facility] CHRONIC KIDNEY DISEASE STAGING PER NKF: MALE GFR INTERPRETATION: 20-49 YRS: >60 mL/min Normal 50-59 YRS: >56 mL/min Normal 60-69 YRS: >49 mL/min Normal 70-79 YRS: >42 mL/min Normal 80 and above >35 mL/min Normal FEMALE GRF INTERPRETATION: 20-39 YRS: >60 mL/min Normal 40-49 YRS: >58 mL/min Normal 50-59 YRS: >51 mL/min Normal 60-69 YRS: >45 mL/min Normal 70-79 YRS: >39 mL/min Normal 80 and above >32 mL/min Normal Creat 0.9 mg/dL 0.5-1.0 [facility] CHRONIC KIDNEY DISEASE STAGING PER NKF: MALE GFR INTERPRETATION: 20-49 YRS: >60 mL/min Normal 50-59 YRS: >56 mL/min Normal 60-69 YRS: >49 mL/min Normal 70-79 YRS: >42 mL/min Normal 80 and above >35 mL/min Normal FEMALE GRF INTERPRETATION: 20-39 YRS: >60 mL/min Normal 40-49 YRS: >58 mL/min Normal 50-59 YRS: >51 mL/min Normal 60-69 YRS: >45 mL/min Normal 70-79 YRS: >39 mL/min Normal 80 and above >32 mL/min Normal K 3.0 mmol/L 3.5-5.1 Below low normal [facility] ( [facility] CHRONIC KIDNEY DISEASE STAGING PER NKF: MALE GFR INTERPRETATION: 20-49 YRS: >60 mL/min Normal 50-59 YRS: >56 mL/min Normal 60-69 YRS: >49 mL/min Normal 70-79 YRS: >42 mL/min Normal 80 and above >35 mL/min Normal FEMALE GRF INTERPRETATION: 20-39 YRS: >60 mL/min Normal 40-49 YRS: >58 mL/min Normal 50-59 YRS: >51 mL/min Normal 60-69 YRS: >45 mL/min Normal 70-79 YRS: >39 mL/min Normal 80 and above >32 mL/min Normal Na 131 mmol/L 136-145 Below low normal [facility] ( [facility] CHRONIC KIDNEY DISEASE STAGING PER NKF: MALE GFR INTERPRETATION: 20-49 YRS: >60 mL/min Normal 50-59 YRS: >56 mL/min Normal 60-69 YRS: >49 mL/min Normal 70-79 YRS: >42 mL/min Normal 80 and above >35 mL/min Normal FEMALE GRF INTERPRETATION: 20-39 YRS: >60 mL/min Normal 40-49 YRS: >58 mL/min Normal 50-59 YRS: >51 mL/min Normal 60-69 YRS: >45 mL/min Normal 70-79 YRS: >39 mL/min Normal 80 and above >32 mL/min Normal CL 92.6 mmol/L 98.0-107.0 Below low normal [facility] ([facility] CHRONIC KIDNEY DISEASE STAGING PER NKF: MALE GFR INTERPRETATION: 20-49 YRS: >60 mL/min Normal 50-59 YRS: >56 mL/min Normal 60-69 YRS: >49 mL/min Normal 70-79 YRS: >42 mL/min Normal 80 and above >35 mL/min Normal FEMALE GRF INTERPRETATION: 20-39 YRS: >60 mL/min Normal 40-49 YRS: >58 mL/min Normal 50-59 YRS: >51 mL/min Normal 60-69 YRS: >45 mL/min Normal 70-79 YRS: >39 mL/min Normal 80 and above >32 mL/min Normal Co2 21.6 mmol/L 22.0-29.0 Below low normal [facility] ([facility] CHRONIC KIDNEY DISEASE STAGING PER NKF: MALE GFR INTERPRETATION: 20-49 YRS: >60 mL/min Normal 50-59 YRS: >56 mL/min Normal 60-69 YRS: >49 mL/min Normal 70-79 YRS: >42 mL/min Normal 80 and above >35 mL/min Normal FEMALE GRF INTERPRETATION: 20-39 YRS: >60 mL/min Normal 40-49 YRS: >58 mL/min Normal 50-59 YRS: >51 mL/min Normal 60-69 YRS: >45 mL/min Normal 70-79 YRS: >39 mL/min Normal 80 and above >32 mL/min Normal CA 9.3 mg/dL 8.6-10.2 [facility] CHRONIC KIDNEY DISEASE STAGING PER NKF: MALE GFR INTERPRETATION: 20-49 YRS: >60 mL/min Normal 50-59 YRS: >56 mL/min Normal 60-69 YRS: >49 mL/min Normal 70-79 YRS: >42 mL/min Normal 80 and above >35 mL/min Normal FEMALE GRF INTERPRETATION: 20-39 YRS: >60 mL/min Normal 40-49 YRS: >58 mL/min Normal 50-59 YRS: >51 mL/min Normal 60-69 YRS: >45 mL/min Normal 70-79 YRS: >39 mL/min Normal 80 and above >32 mL/min Normal TP 7.3 g/dL 6.6-8.7 [facility] ([facility] CHRONIC KIDNEY DISEASE STAGING PER NKF: MALE GFR INTERPRETATION: 20-49 YRS: >60 mL/min Normal 50-59 YRS: >56 mL/min Normal 60-69 YRS: >49 mL/min Normal 70-79 YRS: >42 mL/min Normal 80 and above >35 mL/min Normal FEMALE GRF INTERPRETATION: 20-39 YRS: >60 mL/min Normal 40-49 YRS: >58 mL/min Normal 50-59 YRS: >51 mL/min Normal 60-69 YRS: >45 mL/min Normal 70-79 YRS: >39 mL/min Normal 80 and above >32 mL/min Normal Globulin 2.9 CALC [facility] ([facility] CHRONIC KIDNEY DISEASE STAGING PER NKF: MALE GFR INTERPRETATION: 20-49 YRS: >60 mL/min Normal 50-59 YRS: >56 mL/min Normal 60-69 YRS: >49 mL/min Normal 70-79 YRS: >42 mL/min Normal 80 and above >35 mL/min Normal FEMALE GRF INTERPRETATION: 20-39 YRS: >60 mL/min Normal 40-49 YRS: >58 mL/min Normal 50-59 YRS: >51 mL/min Normal 60-69 YRS: >45 mL/min Normal 70-79 YRS: >39 mL/min Normal 80 and above >32 mL/min Normal A/G Ratio 1.5 CALC [facility] ([facility] CHRONIC KIDNEY DISEASE STAGING PER NKF: MALE GFR INTERPRETATION: 20-49 YRS: >60 mL/min Normal 50-59 YRS: >56 mL/min Normal 60-69 YRS: >49 mL/min Normal 70-79 YRS: >42 mL/min Normal 80 and above >35 mL/min Normal FEMALE GRF INTERPRETATION: 20-39 YRS: >60 mL/min Normal 40-49 YRS: >58 mL/min Normal 50-59 YRS: >51 mL/min Normal 60-69 YRS: >45 mL/min Normal 70-79 YRS: >39 mL/min Normal 80 and above >32 mL/min Normal Alb 4.4 g/dL 3.4-4.8 [facility] ([facility] CHRONIC KIDNEY DISEASE STAGING PER NKF: MALE GFR INTERPRETATION: 20-49 YRS: >60 mL/min Normal 50-59 YRS: >56 mL/min Normal 60-69 YRS: >49 mL/min Normal 70-79 YRS: >42 mL/min Normal 80 and above >35 mL/min Normal FEMALE GRF INTERPRETATION: 20-39 YRS: >60 mL/min Normal 40-49 YRS: >58 mL/min Normal 50-59 YRS: >51 mL/min Normal 60-69 YRS: >45 mL/min Normal 70-79 YRS: >39 mL/min Normal 80 and above >32 mL/min Normal Alp 75.5 U/L 35-129 [facility] CHRONIC KIDNEY DISEASE STAGING PER NKF: MALE GFR INTERPRETATION: 20-49 YRS: >60 mL/min Normal 50-59 YRS: >56 mL/min Normal 60-69 YRS: >49 mL/min Normal 70-79 YRS: >42 mL/min Normal 80 and above >35 mL/min Normal FEMALE GRF INTERPRETATION: 20-39 YRS: >60 mL/min Normal 40-49 YRS: >58 mL/min Normal 50-59 YRS: >51 mL/min Normal 60-69 YRS: >45 mL/min Normal 70-79 YRS: >39 mL/min Normal 80 and above >32 mL/min Normal Alt (SGPT) 47 U/L 0-41 Above high normal [facility] ([facility] CHRONIC KIDNEY DISEASE STAGING PER NKF: MALE GFR INTERPRETATION: 20-49 YRS: >60 mL/min Normal 50-59 YRS: >56 mL/min Normal 60-69 YRS: >49 mL/min Normal 70-79 YRS: >42 mL/min Normal 80 and above >35 mL/min Normal FEMALE GRF INTERPRETATION: 20-39 YRS: >60 mL/min Normal 40-49 YRS: >58 mL/min Normal 50-59 YRS: >51 mL/min Normal 60-69 YRS: >45 mL/min Normal 70-79 YRS: >39 mL/min Normal 80 and above >32 mL/min Normal Tbili 0.96 mg/dL 0.0-1.2 [facility] ([facility] CHRONIC KIDNEY DISEASE STAGING PER NKF: MALE GFR INTERPRETATION: 20-49 YRS: >60 mL/min Normal 50-59 YRS: >56 mL/min Normal 60-69 YRS: >49 mL/min Normal 70-79 YRS: >42 mL/min Normal 80 and above >35 mL/min Normal FEMALE GRF INTERPRETATION: 20-39 YRS: >60 mL/min Normal 40-49 YRS: >58 mL/min Normal 50-59 YRS: >51 mL/min Normal 60-69 YRS: >45 mL/min Normal 70-79 YRS: >39 mL/min Normal 80 and above >32 mL/min Normal Osmolality-Calculated 263.6 CALC MED ENT ([facility] CHRONIC KIDNEY DISEASE STAGING PER NKF: MALE GFR INTERPRETATION: 20-49 YRS: >60 mL/min Normal 50-59 YRS: >56 mL/min Normal 60-69 YRS: >49 mL/min Normal 70-79 YRS: >42 mL/min Normal 80 and above >35 mL/min Normal FEMALE GRF INTERPRETATION: 20-39 YRS: >60 mL/min Normal 40-49 YRS: >58 mL/min Normal 50-59 YRS: >51 mL/min Normal 60-69 YRS: >45 mL/min Normal 70-79 YRS: >39 mL/min Normal 80 and above >32 mL/min Normal Ast (Sgot) 57 U/L 0-40 Above high normal [facility] ([facility] CHRONIC KIDNEY DISEASE STAGING PER NKF: MALE GFR INTERPRETATION: 20-49 YRS: >60 mL/min Normal 50-59 YRS: >56 mL/min Normal 60-69 YRS: >49 mL/min Normal 70-79 YRS: >42 mL/min Normal 80 and above >35 mL/min Normal FEMALE GRF INTERPRETATION: 20-39 YRS: >60 mL/min Normal 40-49 YRS: >58 mL/min Normal 50-59 YRS: >51 mL/min Normal 60-69 YRS: >45 mL/min Normal 70-79 YRS: >39 mL/min Normal 80 and above >32 mL/min Normal Anion Gap 20 mmol/L [facility] ([facility] CHRONIC KIDNEY DISEASE STAGING PER NKF: MALE GFR INTERPRETATION: 20-49 YRS: >60 mL/min Normal 50-59 YRS: >56 mL/min Normal 60-69 YRS: >49 mL/min Normal 70-79 YRS: >42 mL/min Normal 80 and above >35 mL/min Normal FEMALE GRF INTERPRETATION: 20-39 YRS: >60 mL/min Normal 40-49 YRS: >58 mL/min Normal 50-59 YRS: >51 mL/min Normal 60-69 YRS: >45 mL/min Normal 70-79 YRS: >39 mL/min Normal 80 and above >32 mL/min Normal eGFR Non-Afr. Belgian 72 # CECILIA ([facility] CHRONIC KIDNEY DISEASE STAGING PER NKF: MALE GFR INTERPRETATION: 20-49 YRS: >60 mL/min Normal 50-59 YRS: >56 mL/min Normal 60-69 YRS: >49 mL/min Normal 70-79 YRS: >42 mL/min Normal 80 and above >35 mL/min Normal FEMALE GRF INTERPRETATION: 20-39 YRS: >60 mL/min Normal 40-49 YRS: >58 mL/min Normal 50-59 YRS: >51 mL/min Normal 60-69 YRS: >45 mL/min Normal 70-79 YRS: >39 mL/min Normal 80 and above >32 mL/min Normal eGFR 83 # [facility]ECILIA ( [facility] CHRONIC KIDNEY DISEASE STAGING PER NKF: MALE GFR INTERPRETATION: 20-49 YRS: >60 mL/min Normal 50-59 YRS: >56 mL/min Normal 60-69 YRS: >49 mL/min Normal 70-79 YRS: >42 mL/min Normal 80 and above >35 mL/min Normal FEMALE GRF INTERPRETATION: 20-39 YRS: >60 mL/min Normal 40-49 YRS: >58 mL/min Normal 50-59 YRS: >51 mL/min Normal 60-69 YRS: >45 mL/min Normal 70-79 YRS: >39 mL/min Normal 80 and above >32 mL/min Normal ID Date Data Source [id number] 06/27/2019 11:06:00 AM EST [facility] Name Value Range Interpretation Code Description Data Karli rce(s) Supporting Document(s) Influenza A Reenter NEGATIVE [facility] ([facility] Influenza B NEGATIVE [facility] ([facility] Influenza A NEGATIVE [facility] ([facility] Influenza B Reenter NEGATIVE MED[facility] ([facility] <content>PROCEDURAL CONTROL VALID</con tent>
<content>KIT LOT # _[id number] 06/27/19.[place] . . .</content>
<content>KIT EXP DATE _12/24/19 06/27/19.[place] . . .</content>
<content>The Influenza A & B assay is a rapid molecular in vitro diagnostic test </content>
<content>utilizing an isothermal nucleic acid amplification technology for the</content>
<content>qualitative detection of influenza A and B viral RNA.</content>
<content>Negative results do not preclude influenza virus infection and should not be</content>
<content>used as the sole basis for diagnosis, treatment or other patient management</content>
<content>decisions.</content>
<content></content> ID Date Data Source [id number] 06/27/2019 05:56:00 PM [facility] Name Value Range Interpretation Code Description Data [facility] rce(s) Supporting Document(s) Influenza virus A Ag [Presence] in Nasopharynx by Immunoassa y NEGATIVE NORMAL: NEGATIVE [facility] Influenza virus B Ag [Presence] in Nasopharynx by Immunoassa y NEGATIVE NORMAL: NEGATIVE [facility] NEGATIVENEGATIVE PROCEDURAL CO NTROL VALID KIT LOT # [id number] 06/27/19.[place] . . . KIT EXP DATE _12/24/19 06/27/19.TN . . .The Influenza A & B assay is a rapid molecular in vitro diagnostic testutilizing an isothermal nucleic acid amplification technology for thequalitative detection of influenza A and B viral RNA.Negative results do not preclude influenza virus infection and should not beused as the sole basis for diagnosis, treatment or other patient managementdecisions. ID Date Data Source [id number] 06/15/2019 01:58:00 PM [facility] Patient Name: Kay Lomeli : 1965 Sex: F Pt Unit #: [id number] Location:AMB.DERM Provider: Visit Date/Time: 06/15/19 Primary Insurance: [facility] Secondary Insurance: Self Pay Intake Vital Signs 06/15/19 14:08 Current Height 5 ft 5 in Current Weight 220 lb Weight Measurement Method Stated by Patient BMI 36.6 BP 102/82 Blood Pressure Location Lt brachial Position Sitting Respiration 21 Pulse 90 Pulse Strength Normal Pulse Source Pulse Oximeter Pulse Oximetry (%) 98 Oxygen Delivery Method room air Intake Visit Reasons: Full Body Skin Exam Is patient in pain?: No Allergies ketorolac tromethamine [From Toradol] Allergy (Verified 06/15/19 14:11) Sulfa (Sulfonamide Antibiotics) Allergy (Verified 06/15/19 14:11) Medications cholecalciferol (vitamin D3) (Vitamin D3) 2,000 units PO DAILY esomeprazole magnesium (Nexium) 40 mg PO DAILY hydrochlorothiazide 25 mg PO DAILY ibuprofen 400 mg PO DAILY PRN levothyroxine (Synthroid) 1 tab PO DAILY metoprolol succinate ER (Toprol XL) 1 tab PO DAILY metronidazole 0.75% (MetroCream) 1 SM.AMT TP HS Patient : No Do you need a note to return Do you need a note to return to daycare/school/sports/work: No [facility] - Derm Medical History (Updated 06/15/19 @ 14:21 by BONNY Jay) History of dysplastic nevus (Acute) Inflamed skin tag (Acute) Milial cyst (Acute) Surgical History Dysplastic nevus (Resolved 05/2018) Social History Does the Patient have a Healthcare Proxy: No Does Patient have a DNR?: No Does Patient have a Living Will?: No Date of last skin cancer screenin12/16/18 Pertinent Past History Pertinent Past H istory Previous skin cancer: actinic keratosis and dysplastic nevus (left midback mild/mod DN 05/26/18, Right midback mild DN 05/26/18) Family history of nonmelanoma skin cancer: No Family history with melanoma: No Pertinent Social History: sunscreen use, tanning bed use (in the past), sunburns and outdoor leisureactivities; negative for tobacco use, outdoor occupation, photoprotective clothing and other Date of last full body scan:: 06/15/19 Dermatology HPI History of Present Illness Details:: Patient is treating Acne Rosacea at with Metrocream. Patient has really not noticed a difference. Current Symptoms Chief Complaint:: Patient presents today for a 6 month skin cancer check and has a history of Actinic Keratoses and Dysplastic Nevus. Patient has no family history of skin cancer. Patient is also here today for an AK check. Location: face (Left FH) Duration: months (6 Month recheck) Symptoms: none Severity of symptoms: none Treatments tried: Cryotherapy 01/24/19- Biopsy proven AK 12/16/18 Current treatment: None Treatment response: better (Patient notes area healed well.) Skin care goals for today' visit: Patients goal is for a skin cancer check. Contacts/family history of similar?: No Dermatology ROS Constituitional Reports system reviewed and no additional complaints, except as documented Psych Reports system reviewed and no additional complaints, except as documented Dermatology Exam Constitutional General appearance: comfortable Orientation Orientation: alert and oriented x 3 Skin Skin exam performed including: hair, scalp, face, eyelids, nose, lips, neck, chest, abdomen, back, right arm, right hand, fingers, left arm, left hand, right leg, right foot, left leg, left foot, toes, buttocks and axillae Face and Body: Psych Appearance: grossly normal Mental Status: mental status grossly normal Speech and Movement: speech and movement normal Mood: congruent mood Affect: normal affect Attitude: cooperative Thought Process: normal Thought Content: normal Insight: insight good Judgment: judgment good Office Procedures Electrocautery Destruction Details: EMLA topical anesthetic applied. Electrocautery destruction performed to milia x1, skin tag x1. ABN and Consent form signed. Treatment options, risks, benefits, and side effects reviewed (including but not limited to: scar, infection, pain, need for repeat treatment). Wound care instructions given. Assessment Plan Assessment Plan (1) Screening for Malignant Neoplasm of Skin: Code(s): Z12.83 - Encounter for screening for malignant neoplasm of skin Plan - BONNY Jay: Reviewed sign and symptoms of skin cancer, including ABCDEs of melanoma. Discussed the importance of sunscreen, avoidance of tanning beds and excessive UV exposure. Explained the importance of monthly self skin examinations. Recommend skin cancer screenings on a yearly basis. (2) History of dysplastic nevus: Status: Acute Code(s): Z86.018 - Personal history of other benign neoplasm SNOMED Code(s): 5507483335164 Category: Medical Plan - BONNY Jay: History of Dysplastic Nevi, No evidence of recurrence or repigmentation. All Nevi are benign appearing- no asymmetry, border or color irregularities. Signs and symptoms of skin cancer reviewed, recommend routine skin cancer screenings to m onitor for recurrence or new lesions. (3) Acne rosacea, erythematous telangiectatic type: Code(s): L71.8 - Other rosacea Plan - BONNY Jay: c/w Metrocream QHS (4) Sebaceous hyperplasia: Code(s): L73.8 - Other specified follicular disorders Plan - BONNY Jay: Explained to patient benign nature of lesions, tx deferred. (5) Stucco keratoses: Code(s): L85.1 - Acquired keratosis [keratoderma] palmaris et plantaris Plan - BONNY Jay: Explained to patient benign nature of lesions, tx deferred. (6) Milial cyst: Status: Acute Code(s): L72.0 - Epidermal cyst SNOMED Code(s): 630142635 Category: Medical Plan - BONNY Jay: Cautery destruction (7) Inflamed skin tag: Status: Acute Code(s): L91.8 - Other hypertrophic disorders of the skin SNOMED Code(s): 310933939 Category: Medical Plan - BONNY Jay: Cautery destruction Orders Follow Up: yrly Electronically Signed By: <Electronically signed by Silvina DRAPER> Date/Time Signed: 06/15/19 1437 Name Value Range Interpretation Code Description Data Karli rce(s) Supporting Document(s) ID Date Data Source [id number] 06/14/2019 01:15:00 PM EST [facility] Name Value Range Interpretation Code Description Data Karli rce(s) Supporting Document(s) Follow Up [facility] KBTRKw9gZmOZJpGvLORmApfILNldLNfbQALfU7V8AJplGh2IAOeojfIvUYFgGb7+DBAvJE9ujk4yMYCy gMy 8wPNGuLtncA3PmZYHdo68NJQPtSWxXPvZgOrLgBsAyVECcYeY2QZZ2EbEkSdddOY5zDIN8DYKxECvvRA MxXLCsBNJ9LiqeWo0iEWqiGSmwAf5AOQ5wl3BwCYFiKTDyUnoYXTzoREaqZRQoJIBgIBYbK974wbGaXO 6OjVVsMLr8IWHrBmR8MAJaTkY4OUTkUwWiJtOxZAGw Q5Zzy594zwRrvwQ7EK4ZC6MuSVB9ASr7G0dbAbTsYCJbHEZzIB1jJzY8OUFkTk7HiMblKGMsFUKuRl7R zVv0KJW6TFIkGp6+Pj4+Vs0zciXbFgbXAFYaZE6iha19UN4YpLLoPJ0ZJHgkO40fIDqeZa63XKpsAMKr XhXwESl7Nl2iUuVay5PfG5JbZPw7Y0xVLjblY6SeZT hxLM8xXOY4UZXyNv6+Xq6sELInKP32PETeXFNZU2BpdvFiqrMwECc1ARZjWa3+Ah2ceoLtXtzPPZLwER 7hvq24CQ4DFQ0dkCjaBjycSsJuQ21zmMOmV4tjWvPmJ2RpcPqgJBLtMM9jN9HqPSxxRHLcTU9fcaQioP 3JlWw7WZVxOd6KsAL8NJFqO06uHSGqTBYMJZKrf8Ae RT8Dv4jojaRqJYNfIW0OLUPiA6PMF8OsA3guzHpyESUnXK3UKCxccRUpLLh4CJ9CiARcTVPiL68gdE0z FZ37HWx+RnB5utYmsL1UsQclv9ZVKy+6981vkhO6GUdszTQqsMJKjaz7d1iyeOEMGPc0u5y1i2jIC3wO E4JM/neeO/fj59vCJhIs0ajxOlhN9b6S+2woo0mw4e tP71PXANNLWRuFQMmCMPBDYT6TABHcLqTSP0XmgIhssRhHRgnXOyVextrNzbs2sREk8Hp6gXfgR8e9gX lynnette+DD3BWVLRgd1/uCCWm4KPPSNtlrRf8slNkx4gd2wu+5W3PIchNE2QbG6N9JmwVDhjm9UKIuUCLvkyC [file] yO3tWeZ9/ABORIGINAL COMMUNITY COUNCIL MEMBER/RMla7iNRkW/ivLr2B+ghnNL68P5K0j [file] kle/DaNvUfuBo9DyhGVD/0m+Cn5+G85MZh9C1u9DePp1q529Xe4RDhnkJTYg9oN6KCjvpGwYzG6/Freelance Operator/ [file] t7J0K7ELLSLM3OnKQr3URunPjB1iEcpJ+bzzS0hsx2xPTW8kAuuI85EOHyDWZSjparVPAZcbufGCN/ PstRKhZjgnxChyob5SxRqGAYRs7TPDhIRdV5aDTXlp UxKR58C7SCE1kPTHoZEeDoF/WRF+jN272IwIUG1V1ODsY8rrg43aodFfTpC69kKj42ufMZpFQcTOEdsi V3a4ULWPxMgTmNPNOKME0Myjx4LhhNxRjfiC7FPX/YJ8iVgZaJ9su7bfSa/8wtYeRDffX7PXQpEFp7kv CGfPhWG9whIR7sfN8xsABddlYcL1b28KfSI9yO+domi eELtY7sF7q3p3LmFngGFIs6wz38jotX8VZNlxLvLVSz8t2kmNRwOMLWvZxqDEXAJiFMsP9L2CDTPhAOv cyUf1zyltoNyMowopswaSIw/warehouse sorter/nYEApPTlqpdpU+D5ejF1QQMkjGRPIdvI1EJbCL3TkNaAcq0kJuvy 6L4X8Ap7hmbKIK9L+Tcqnxa6DzYfQzai0XCgT2Iz/X M6ut4r2vcgwqjExbofvs16QjZPG49XpIyaVGq3EvvKaV06OxEdoBAHyJe7dkF5Df3HypUZ3JWh5eNM7U mJgcnLwK+A2dkPbX4oUFyEbi6Lhd2Da7wymJUscBxxbqb7m/pbGvBdjgBxk6jg6YeYn4zLUpfPAkdGBo 4TdT5V+XRkjXT4HWHGpqQJ2ROTKPXpQBL5K6PPX82b Rin4q1GdBiQlH6bNmJiHk6rbhkMPs/F0w6mFqEM3PcWRfAsFizQTgdqhr4YmQN1fb4/OWp2g5tgRdnVp AUAbmfKVhj2qfajV0J8QGLO6qZM7q765EmaKUD0lq9ByIFz4/6TdZLcm2nndeDRGdjysLbNGZPQgY+Sm 6VTtBpKBa37vdA38MnaqOwo6W+7lGn0qNlIcgGJZJI a3qU8av54IsDrdN1bzUKcCQcavj3PoHSMrefjXOBI9+kXAjb51hC+I5rdZ4FnxyFFhfSh9Txl6ZQ4Uam 4SDqDLopixVzqU7wDvhmzJL1wlEZuShyvdhR/i1DUg4fCqjDHIqYCZ1NPOZUy3DKAYlIqVvWQjFIqs4q +btYB3213011+y4q9z8O8zBJ1ROHtpMAv27T4inbIZ [file] /wxgudovT8DVW0fjUH0X3s/qjZir1x1n+medical insurance coding specialist+L5nmxEkbXvh957fK7P8PlYrdQ3wwlbWeS7esbLcCo5w [file] yRS9bRXp/ZAqELhgvQ40qfY+upholstery auto trimmer+uH16MHTOvVAOKS [file] 1Co1eoeJZEAwThfKvpRK/cetdlKmMLOYsR6BDyRLdxUqQBymvrQdviHU7jCXhaT9yeI3eyK/seH/Meño [file] Gaby+AOnvQ2Uzbq+8O3tej86VayZDfOspkzl7Eyw2Y/ mFZ6DEyhMAWX014LZfCZEgQ+X0p+CROxvrMWT3Z++BMtzIdogxQ8Ol6rzAVAB1fmvCGBUnlmWuO2yHGL lNNExfbIj4bstPpVUMEYakxwZFlu16aZYcnyK03lrutzxrr0j1BGCc/NGxUfTPfoCc2TIxAz7Cv3ZhdL uER/Ygg48JeP2/CxNXqmwNZB4gyMds7hiPeVRY/sJl /parts processor//b9S24b0mwPnP+I3/YCrjnuR/K+ZYLsnU3sX6nusWhQkoW8owk9Hr6EUDdW3LmSkp54HFXymV1B [file] b+/8vuPJFh4T46MUj1cd0lvEuWP2YGDU3Lfh+MGsV6f5wSUX9qp/vYtQlc+wood heel fitter machine+QnYu2ApIhfK+0Ay4V [file] jpOqiT2RZQniE6ANX0Rz+dn7+M5gGleEqNgH+Bhaskar/e qcVMsZXLPy4LWOlXZaw2aViCp1NIQfAE7FjbvVfFosNudJOk3/WsaiP6b7FdXkzIp10Z5xULx9qkFghk gQHt1WjZmrCOZA6aEkSz3lHfkudmm6jLka6UzYnQmrY6L/Hd5Om0HSieu5UL1UoDmOtXVC5kvlfIkyj4 Mv8cfDaD/F7OGWx9apQdxzCq8a8O8AkQwNy9/UTDlu XUweTomXKBrts9m8D2pr7ysqwx86Kr/vakA/nlotD+rdLOHAO4bdTOUg1xlU4nH+mKlRoYJC0KF0qd99 O4s2dB+Pipe Threading Machine Operator+RG/yzJpKC4l0WpkqvdZ4pHOKCG+/JJmzq6KKcovk+/uNb5mFerL83IaE44nnHlKpmtEE8C [file] Qy7BiIt7q+Arboreal Scientist/wZuR9s6QXyL28Z0E9L9kF3jHaMWiyThI8lE9bV+o2k5qEdTrdQqhv2U5AhoZiAHI6X [file] cJQbwTl5PiD8BLmY7/vJKComB5WoxCFYO6Yz77jzBmr4qJX5AdzKAlKs5XEL6xYKM2ZECU14SVP/group marketing vp+D [file] tbuXuMw0N//group marketing vp/Tj9u1zOdE3SY1LfrNIeTmXL+KrQx [file] 3gGszu5Y1fPEHgYCvTs212oDmrcnUwROFHYtN+metaphysics teacher/H [file] tePxp1sp7JVuHtC+medication technician+Efba3NVMz9tbLZF+MBHMgEOEtJC+ywvNDL8SuQZsJwgBjJ0XtMbOcvdN+KPl [file] YFJWBQUxMXs9/+2zPWj45R/vIjjpZgTCcpn3JbV+Pipe Threading Machine Operator [file] UspbWvcPV4LSADMTETRYd/ANDRÉS/DwxMLGwcXLxH+CNNtdvJnGBJTLhWwYtYXEnM5D89f//1E1TAkCgzGx [file] cnokBmsHLaLT0OWbEvXT0amt8YWvA0LZI1pNXmMc5IJVR5YdH9NX3GHLEOC1K= ID Date Data Source [id number] 04/29/2019 01:20:00 PM EST [facility] ([facility], [facility]) Name Value Range Interpretation Code Description Data Karli rce(s) Supporting Document(s) Group A Strep Culture FULL REPORT IN L <SEE NOTE> [facility] ([facility], [facility]) Negative. Procedure Social History Code Duration Value Status Description Data Source(s ) Smoking 10/06/2019 12:00:00 AM EDT Never Smoker completed Never S moker eCW1 ([facility]) Vital Signs ID Date Data Source UNK Name Value Range Interpretation Code Description Data Source(s) [place] body weight 125 [lb_av] 125 [lb_av] MEDEN T ([facility] Body weight 240.00 [lb_av] 240.00 [lb_av] MEDEN T ([facility] Body height 65 [in_i] 65 [in_i] [facility] ([facility] 5'5" Respiratory rate 16 /min 16 /min [facility] ( [facility] Heart rate 80 /min 80 /min [facility] ([facility] Body temperature 97.3 [degF] 97.3 [degF] [facility] ([facility] Diastolic blood pressure 74 mm[Hg] 74 mm[Hg] [facility] ([facility] Systolic blood pressure 130 mm[Hg] 130 mm[Hg] M EDENT ([facility] Oxygen saturation in Arterial blood by Pulse oximetry 95 % 95 % [facility] ([facility] Body mass index (BMI) [Ratio] 39.9 kg/m2 39.9 k g/m2 [facility] ([facility] Diastolic blood pressure 82 mm[Hg] 82 mm[Hg] eCW1 ([facility]) Systolic blood pressure 118 mm[Hg] 118 mm[Hg] e CW1 ([facility]) Body mass index (BMI) [Ratio] 42.39 kg/m2 42.39 kg/m2 eCW1 ([facility]) Body height 64 [in_i] 64 [in_i] eCW1 ([facility]) Body weight 247 [lb_av] 247 [lb_av] eCW1 ([facility]) Oxygen saturation in Arterial blood by Pulse oximetry 96 % 96 % [facility] ([facility] Body mass index (BMI) [Ratio] 39.9 kg/m2 39.9 k g/m2 [facility] ([facility] [place] body weight 125 [lb_av] 125 [lb_av] MEDEN T ([facility] Body weight 240.00 [lb_av] 240.00 [lb_av] MEDEN T ([facility] Body height 65 [in_i] 65 [in_i] [facility] ([facility] 5'5" Respiratory rate 16 /min 16 /min [facility] ( [facility] Heart rate 103 /min 103 /min [facility] ([facility] Body temperature 8.1 [degF] 8.1 [degF] [facility] ( [facility] Diastolic blood pressure 84 mm[Hg] 84 mm[Hg] [facility] ([facility] Systolic blood pressure 114 mm[Hg] 114 mm[Hg] M EDENT ([facility] Oxygen saturation in Arterial blood by Pulse oximetry 97 % 97 % [facility] ([facility] Body mass index (BMI) [Ratio] 37.9 kg/m2 37.9 k g/m2 [facility] ([facility] Body weight 228.00 [lb_av] 228.00 [lb_av] MEDEN T ([facility] Body height 65 [in_i] 65 [in_i] [facility] ([facility] 5'5" Respiratory rate 16 /min 16 /min [facility] ( [facility] Heart rate 98 /min 98 /min [facility] ([facility] Body temperature 98.0 [degF] 98.0 [degF] [facility] ([facility] Diastolic blood pressure 72 mm[Hg] 72 mm[Hg] [facility] ([facility] Systolic blood pressure 122 mm[Hg] 122 mm[Hg] M EDENT ([facility] Body mass index (BMI) [Ratio] 39.5 kg/m2 39.5 k g/m2 [facility] ([facility], [facility]) Body height 64 [in_i] 64 [in_i] [facility] ([facility], [facility]) 5'4" Body weight 230.00 [lb_av] 230.00 [lb_av] MEDEN T ([facility], [facility]) Body temperature 98.8 [degF] 98.8 [degF] [facility] ([facility], [facility]) Oxygen saturation in Arterial blood by Pulse oximetry 98 % 98 % [facility] ([facility], [facility]) Respiratory rate 20 /min 20 /min [facility] ( [facility], [facility]) Heart rate 104 /min 104 /min [facility] ([facility], [facility]) Diastolic blood pressure 85 mm[Hg] 85 mm[Hg] [facility] ([facility], [facility]) Systolic blood pressure 135 mm[Hg] 135 mm[Hg] M EDENT ([facility], [facility]) Body mass index (BMI) [Ratio] 39.5 kg/m2 39.5 k g/m2 [facility] ([facility], [facility]) Body height 64 [in_i] 64 [in_i] [facility] ([facility], [facility]) 5'4" Body weight 230.00 [lb_av] 230.00 [lb_av] MEDEN T ([facility], [facility]) Body temperature 99.0 [degF] 99.0 [degF] [facility] ([facility], [facility]) Oxygen saturation in Arterial blood by Pulse oximetry 99 % 99 % [facility] ([facility], [facility]) Respiratory rate 20 /min 20 /min [facility] ( [facility], [facility]) Heart rate 90 /min 90 /min [facility] ([facility], [facility]) Diastolic blood pressure 71 mm[Hg] 71 mm[Hg] [facility] Systolic blood pressure 127 mm[Hg] 127 mm[facility]Hg] [facility])
--- OUTSIDE RECORDS SUMMARY | 2020-06-02 08:08 | CCD | Continuity of Care Document ---
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 Najera Vitamin D deficiency Curt Miner RPA Onset: 4 Essential hypertension Curt Miner RPA Onset: 015 Gastroesophageal reflux disease Curt Miner RPA Onset : 05/17/2015 Mixed hyperlipidemia Curt Miner RPA Onset: 7 Social History Type Date Description Comments Sex Unknown Tobacco Use Start: Unknown Former smoker, quit at age 17. ETOH Use Occasionally consumes beer Tobacco Use Start: Unknown End: Unknown Patient is a former smoker Exercise Type/Frequency Walks daily Seat Belt/Car Seat always Allergies, Adverse Reactions, Alerts Active Allergies Reaction Severity Comments Date Sulfa Drugs 02/02/2001 Toradol hives 08/03/2006 Medications Active Medications SIG Qnty Indications Ordering Provide r Date Metoprolol Succinate ER 50mg Tablets ER 24HR Take One Tablet By Mouth Every Day Maximum Daily Dose = 1 Tablet 90tabs I10 Migue Najera D.O., FAAFP 01/16/2020 Breo Ellipta 100-25mcg/Inh Aerosol 1 puff by mouth every day 60units Migue Najera D.O., FAAFP 06/07/2019 Synthroid 125mcg Tablets 1 by mouth every day 30tabs E03.9 Migue Najera D.O., FAAFP Ibuprofen 800mg Tablets 1 po tid prn pain 90tabs Jenn Jenkins [facility] 08/27/2011 Hydrochlorothiazide 25mg Tablets Take One Tablet By Mouth Every Day Maximum Daily Dose = 1 Tablet 90tabs I10 Migue Najera D.O., FAAFP 03/09/2007 Vitamin D3 Super Strength 2000Unit Tablets 1 by mouth every day Unknown 000 Immunizations CPT Code Status Date Vaccine Reaction Lot # [id number] Refused 01/12/2019 Influenza Virus Vaccine, Quadrivalent, Slit Virus, Im Use 3Y & Up RECEIVES AT WORK 01/12/19 [id number] Refused 03/08/2018 Influenza Virus Vaccine, Quadrivalent, Slit Virus, Im Use 3Y & Up RECEIVED AT WORK 01/02/2018 Vital Signs Date Vital Result Comment 05/07/2020 3:27pm BP Systolic 130 mmHg BP Diastolic 74 mmHg Body Temperature 97.3 F Heart Rate 80 /min Respiratory Rate 16 /min Height 65 inches 5'5" Weight 240.00 lb [place] Body Weight 125 lb BMI (Body Mass Index) 39.9 kg/m2 O2 % BldC Oximetry 95 % 08/18/2019 3:02pm BP Systolic 114 mmHg BP Diastolic 84 mmHg Body Temperature 8.1 F Heart Rate 103 /min Respiratory Rate 16 /min Height 65 inches 5'5" Weight 240.00 lb [place] Body Weight 125 lb BMI (Body Mass Index) 39.9 kg/m2 O2 % BldC Oximetry 96 % Results Description No Information Available Procedures Description No Information Available Medical Devices Description No Information Available Encounters Type Date Location Provider Dx Diagnosis Office Visit 01/03/2020 3:15p [place] [facility] Curt Miner, RP A I10 Essential (primary) hypertension E03.9 Hypothyroidism, unspecified E55.9 Vitamin D deficiency, unspec ified R80.9 Proteinuria, unspecified R31.9 Hematuria, unspecified Assessments Date Code Description Provider 05/07/2020 I10 Essential (primary) hypertension Curt Miner, RPA 05/07/2020 E03.9 Hypothyroidism, unspecified Curt Garduno, RPA 05/07/2020 E55.9 Vitamin D deficiency, unspecifie d Curt Minre, RPA 05/07/2020 R80.9 Proteinuria, unspecified Curt Miner, RPA 05/07/2020 R31.9 Hematuria, unspecified Francine Miner, RPA 01/03/2020 I10 Essential (primary) hypertension Curt Miner, RPA 01/03/2020 E03.9 Hypothyroidism, unspecified Curt Garduno, RPA 01/03/2020 E55.9 Vitamin D deficiency, unspecifie d Curt Miner, RPA 01/03/2020 R80.9 Proteinuria, unspecified Curt Miner, RPA 01/03/2020 R31.9 Hematuria, unspecified Francine Miner, RPA 12/20/2019 I10 Essential (primary) hypertension Curt Miner, RPA 12/20/2019 E03.9 Hypothyroidism, unspecified Curt Garduno, RPA 12/20/2019 E55.9 Vitamin D deficiency, unspecifie d Curt Miner, RPA 12/20/2019 R80.9 Proteinuria, unspecified Curt Miner, RPA 12/20/2019 R31.9 Hematuria, unspecified Francine Miner, SAIDA Plan of Treatment Future Appointment(s):* 09/04/2020 3:15 pm - Curt Miner RPA at [place] [facility] Functional Status Description No Information Available Mental Status Description No Information Available Referrals Description No Information Available
--- OUTSIDE RECORDS SUMMARY | 2020-06-02 08:08 | CCD | Continuity of Care Document ---
Author Author Kay MINER RPA Organization Unknown Address [address] [facility] [address] [place] [address] Phone [phone] Problems Active Problems Provider Date Hypothyroidism Janet [...] po tid prn pain 90tabs Jenn Jenkins [facility] 08/27/2011 Hydrochlorothiazide 25mg Tablets Take One Tablet By Mouth Every Day Maximum Daily Dose = 1 Tablet 90tabs I10 Migue Najera D.O., FAAFP 03/09/2007 Vitamin D3 Super Strength 2000Unit Tablets 1 by mouth every day Unknown 0 000 Immunizations CPT Code Status Date Vaccine Reaction Lot # [id number] Refused 01/12/2019 Influenza Virus Vaccine, Quadrivalent, Slit Virus, Im Use 3Y & Up RECEIVES AT WORK 01/12/19 [id number] Refused 03/08/2018 Influenza Virus Vaccine, Quadrivalent, Slit Virus, Im Use 3Y & Up RECEIVED AT WORK 01/02/2018 Vital Signs Date Vital Result Comment 05/07/2020 3:27pm BP Systolic 130 mmHg BP Diastolic 74 mmHg Body Temperature 97.3 F Heart Rate 80 /min Respiratory Rate 16 /min Height 65 inches 5'5" Weight 240.00 lb [place] Body Weight 125 lb BMI (Body Mass Index) 39.9 kg/m2 O2 % BldC Oximetry 95 % 08/18/2019 3:02pm BP Systolic 114 mmHg BP Diastolic 84 mmHg Body Temperature 8.1 F Heart Rate 103 /min Respiratory Rate 16 /min Height 65 inches 5'5" Weight 240.00 lb [place] Body Weight 125 lb BMI (Body Mass Index) 39.9 kg/m2 O2 % BldC Oximetry 96 % Results Description No Information Available Procedures Description No Information Available Medical Devices Description No Information Available Encounters Type Date Location Provider Dx Diagnosis Office Visit 05/07/2020 3:15p [place] [facility] Curt Miner, RP A I10 Essential (primary) hypertension E03.9 Hypothyroidism, unspecified E55.9 Vitamin D deficiency, unspec ified R80.9 Proteinuria, unspecified R31.9 Hematuria, unspecified Office Visit 01/03/2020 3:15p [place] [facility] Curt Miner, RP A I10 Essential (primary) hypertension E03.9 Hypothyroidism, unspecified E55.9 Vitamin D deficiency, unspec ified R80.9 Proteinuria, unspecified R31.9 Hematuria, unspecified Assessments Date Code Description Provider 05/07/2020 I10 Essential (primary) hypertension Curt Miner, RPA 05/07/2020 E03.9 Hypothyroidism, unspecified Curt Garduno, RPA 05/07/2020 E55.9 Vitamin D deficiency, unspecifie d Curt Miner, RPA 05/07/2020 R80.9 Proteinuria, unspecified Curt Miner, [...] Miner, RPA 12/20/2019 R31.9 Hematuria, unspecified Francine Miner RPA Plan of Treatment Future Appointment(s):* 09/04/2020 3:15 pm - Curt Miner RPA at [place] [facility] Functional Status Description No Information Available Mental Status Description No Information Available Referrals Description No Information Available
[2020-06-02 08:31] LABS: BASO # 0.1 10^3/uL (0.0-0.2); BASO % 0.8 % (0.0-1.0); EOS # 0.2 10^3/uL (0.0-0.5); EOS % 1.6 % (0.0-3.0); HEMATOCRIT 51.8 % (36.0-47.0); HEMOGLOBIN 16.4 g/dl (12.0-15.5); LYMPH % 28.6 % (24.0-44.0); MEAN CORPUSCULAR HEMOGLOBIN 29.4 pg (27.0-33.0); MEAN CORPUSCULAR HGB CONC 31.7 g/dl (32.0-36.5); MEAN CORPUSCULAR VOLUME 92.8 fl (80.0-96.0); MONO # 0.6 10^3/uL (0.0-0.8); MONO % 5.6 % (0.0-5.0); NEUTROPHILS # 6.5 10^3/uL (1.5-8.5); NEUTROPHILS % 62.7 % (36.0-66.0); PLATELET COUNT, AUTOMATED 324 10^3/uL (150-450); RED BLOOD COUNT 5.58 10^6/uL (4.00-5.40); WHITE BLOOD COUNT 10.4 10^3/uL (4.0-10.0)
--- NOTE | 2020-06-02 08:32 | REP ---
INDICATION: CHEST PAIN. COMPARISON: Comparison chest x-ray June 20, 2019. TECHNIQUE: Portable upright AP chest radiograph. FINDINGS: The lungs are well inflated and free of infiltrate. Pleural angles are sharp. Heart size is normal. Pulmonary vasculature is not increased. Monitoring electrodes are visible. IMPRESSION: No active disease. <Electronically signed by Rasheed Mendoza > 06/02/20 [id number]
--- OUTSIDE RECORDS SUMMARY | 2020-06-02 08:46 | CCD ---
Author Author [facility] Organization [facility] Address Unknown Phone Unavailable Care Team Providers Care Parts Counterperson Name Role Phone Nayely Miner PA Unavailable [...] Unavailable Isidra, D Curt PA Unavailable Unavailable Isdira, D Curt PA Unavailable Unavailable Isidra, D Curt PA Unavailable Unavailable Isidra, D Curt PA Unavailable Unavailable Isidra, D Curt PA Unavailable Unavailable Isidra, D Curt PA Unavailable Unavailable Isidra, D Curt PA Unavailable Unavailable Isidra, D Curt PA Unavailable Unavailable Isidra, D Cutr PA Unavailable Unavailable Isidra, D Curt PA [...] MD Unavailable Unavailab le TRACEY (EVA), Francine URÑEA MD Unavailable Unavailab le TRACEY (EVA), Francine UREÑA MD Unavailable Unavailab le TRACEY (EVA), Francine UREÑA MD Unavailable Unavailab le TRACEY (EVA), Francine UREÑA MD Unavailable Unavailab le TRACEY (EVA), Francine UREÑA MD Unavailable Unavailab le TRACEY (EVA), Francine UREÑA MD Unavailable Unavailab le TRACEY (EVA), Francine UREÑA MD Unavailable Unavailab le TRACEY (EVA), Fracnine UREÑA MD Unavailable Unavailab le TRACEY (EVA), [...] Unavailable Isidra, D Curt PA Unavailable Unavailable Isirda, D Curt PA Unavailable Unavailable Isidra, D [...] is protected by Article 27-F of the [facility] Public Health law. If you continue you may have access to information: Regarding HIV / AIDS; Provided by facilities licensed or operated by the [facility] Office of Mental Health; or Provided by the [facility] Office for People With Developmental Disabilities. If such information is present, then the following [facility] mandated warning applies: This information has been [...] law may result in a fine or mcfp sentence or both. A general authorization for [...] Data Source(s ) Outpatient Attender: Curt DRAPER [facility] 08/2020 02:15:00 PM EST [facility] ([facility] Outpatient Attender: Curt DRAPER [facility] 05/2019 03:15:00 PM EDT [facility] ([facility] [place] [address] [address] 10/06/2019 12:00:00 AM EDT eCW1 ([facility]) Outpatient Attender: Curt DRAPER [facility] 03:00:00 PM EDT MED[facility] ([facility] Outpatient Referrer: Curt DRAPER 06/28/2019 12:41:00 PM EST [facility] Outpatient Attender: Curt DURÁN eferrer: Curt Miner PAConsultant: Curt DRAPER 06/27/2019 04:11:00 PM EST - 06/27/2019 04:21: 00 PM EST [facility] Outpatient Attender: Curt DRAPER [facility] 09:40:00 AM EST [facility] ([facility] Outpatient Attender: RYARAY Mathews [facility] 06/20/2019 07:45:00 AM EST [facility] ([facility]) Attender: ADELITA WEBB ([place]) MDReferrer: Francine DRAPER 06/15/2019 08:20:02 PM EST [facility] Attender: ADELITA WEBB ([place]) MDReferrer: Francine DRAPER 06/15/2019 08:20:02 PM EST [facility] Outpatient Attender: Silvina Baeza PAReferrer: Curt DRAPER 06/15/2019 01:58:00 PM EST [facility] Attender: ADELITA WEBB ([place]) MDReferrer: Francine DRAPER 06/14/2019 08:20:02 PM EST [facility] Attender: ADELITA WEBB ([place]) MDReferrer: Francine DRAPER 06/14/2019 08:20:02 PM EST [facility] Outpatient Attender: Curt DRAPER [facility] 08/2019 12:15:00 PM EST MED[facility] ([facility] Outpatient Attender: Juan J DRAPER Bita Mathews Isabel stacey 04/29/2019 11:00:00 AM EST [facility] ([facility]) Outpatient Attender: Curt DRAPER [facility] 09:40:00 AM EST [facility] ([facility] Medications Medication Brand [...] ER 01/16/2020 12:00:00 AM EDT active MEDENT ([facility] Loperamide Hydrochloride 2 MG Oral Capsule Loperamide HCL 06/27/2019 12:00:00 AM EST ORAL completed [facility] ([facility] 2 mg 06/27/2019 [...] 12:00:[address] ORAL completed [facility] ([facility] 4 mg 06/27/2019 [...] 06/20/2019 12:00:00 AM EST ORAL active MED[facility] ([facility]) Prednisone 20 MG Oral Tablet Prednisone 06/20/2019 12:00:00 AM EST ORAL active MEDENT ([facility]) Doxycycline Monohydrate 100 MG Oral Capsule Doxycycline Ray hydrate 06/20/2019 12:00:00 AM EST ORAL completed [facility] ([facility]) Prednisone 20 MG Oral Tablet Prednisone 06/20/2019 12:00:00 AM EST ORAL completed MED[facility] ([facility]) Doxycycline Monohydrate 100 MG Oral Capsule Doxycycline Ray hydrate 06/20/2019 12:00:00 AM EST ORAL active M EDENT ([facility]) 90 mcg/actuation 06/20/2019 12:00:00 AM EST HFA [...] OR AL active [facility] ([facility] benzonatate 100 MG Oral Capsule BENZONATATE 06/07/2019 12:00:00 AM EST capsule 30 TAKE TWO CAPSULES BY MOUTH T HREE TIMES A DAY WITH FULL GLASS OF WATER FOR COUGH TAKE TWO CAPSULES BY MOUTH THREE TIMES A DAY WITH FULL GLASS OF WATER FOR COUGH SOLD: 06/27/2019 [facility] benzonatate 100 MG Oral Capsule [Tessalpierre Wallace] Tessalon P erles 06/07/2019 12:00:00 AM EST ORAL completed [facility] ([facility] benzonatate 100 MG Oral Capsule BENZONATATE 06/07/2019 12:00:00 AM EST capsule 30 TAKE TWO CAPSULES BY MOUTH T HREE TIMES A DAY WITH FULL GLASS OF WATER FOR COUGH TAKE TWO CAPSULES BY MOUTH THREE TIMES A DAY WITH FULL GLASS OF WATER FOR COUGH SOLD: 06/07/2019 [facility] Insurance Providers Payer name Policy type / Coverage type Policy ID Covered democrat ID Covered democrat's relationship to kuo Policy Kuo Plan Information [facility] [id number] SP [id number] R -O/P [id number] 18 [id number] [facility] O [id number] S [id number] [facility] Care Management [id number] 0 [id number] [place] [id number] 0 [id number] [facility] [id number] 0 [id number] ANSI-Commercial [id number] ANSI-Commercial [id number] ANSI-Commercial [id number] [facility]/[employer] Health Maintenance Organization (HMO) [id number] Self [id number] [employer] [id number] SP [id number] [employer] [id number] Self [id number] [employer] Commercial Self [employer] [id number] SP [id number] [facility] [id number] SP [id number] [facility] P [id number] S [id number] Problems, Conditions, and Diagnoses Code Display Name Description Problem Type Effective Dates Data Source(s) R05 Cough Cough Diagnosis 06/27/2019 04:11:00 PM [facility] R110 Nausea Nausea Diagnosis 06/27/2019 04:11:00 PM [facility] Results ID Date Data Source [id number] 06/27/2019 11:07:00 AM EST [facility] ([facility] Name Value Range Interpretation Code Description Data Karli rce(s) Supporting Document(s) Glu 100 mg/dL 70-110 [facility] CHRONIC KIDNEY DISEASE STAGING [...] mL/min Normal BUN/Creatinine Ratio 17.7 CALC MEDENT ([facility] CHRONIC KIDNEY DISEASE STAGING [...] mL/min Normal BUN 16 mg/dL 8-23 [facility] CHRONIC KIDNEY DISEASE STAGING [...] mL/min Normal TP 7.3 g/dL 6.6-8.7 MED[facility] ([facility] CHRONIC KIDNEY [...] >32 mL/min Normal Globulin 2.9 CALC MED[facility] ([facility] CHRONIC KIDNEY [...] mL/min Normal A/G Ratio 1.5 CALC MEDENT ([facility] CHRONIC KIDNEY [...] mL/min Normal Alb 4.4 g/dL 3.4-4.8 MED[facility] ([facility] CHRONIC KIDNEY DISEASE STAGING [...] mL/min Normal Alp 75.5 U/L 35-129 [facility] CHRONIC KIDNEY DISEASE STAGING [...] 47 U/L 0-41 Above high normal MEDENT ([facility] CHRONIC KIDNEY DISEASE [...] mL/min Normal Tbili 0.96 mg/dL 0.0-1.2 [facility] CHRONIC KIDNEY DISEASE STAGING PER [...] mL/min Normal Anion Gap 20 mmol/L CECILIA ([facility] CHRONIC KIDNEY DISEASE STAGING [...] and above >32 mL/min Normal eGFR Non-Afr. Monegasque 72 # CECILIA ([facility] CHRONIC KIDNEY DISEASE [...] mL/min Normal eGFR 83 # CECILIA ( [facility] CHRONIC KIDNEY DISEASE [...] >32 mL/min Normal ID Date Data Source [id number] 06/27/2019 11:06:00 AM EST CECILIA ([facility] Name Value Range Interpretation Code Description Data Karli e(s) Supporting Document(s) Influenza A Reenter NEGATIVE [facility] ([facility] Influenza B NEGATIVE [facility] ([facility] Influenza A NEGATIVE MED[facility] ([facility] Influenza B Reenter NEGATIVE MED[facility] ([facility] <content>PROCEDURAL CONTROL VALID</con tent>
<content>KIT LOT # _[id number] 06/27/19.CO . . .</content>
<content>KIT EXP DATE _12/24/19 06/27/19.CO . . .</content>
<content>The Influenza A & [...] management</content>
<content>decisions.</content>
<content></content> ID Date Data Source [id number] 06/27/2019 05:56:00 PM [facility] Name Value Range Interpretation Code Description Data Karli e(s) Supporting Document(s) Influenza virus A Ag [Presence] in Nasopharynx by Immunoassa y NEGATIVE NORMAL: NEGATIVE [facility] Influenza virus B Ag [Presence] in Nasopharynx by Immunoassa y NEGATIVE NORMAL: NEGATIVE [facility] NEGATIVENEGATIVE PROCEDURAL CO NTROL VALID KIT LOT # [id number] 06/27/19.CO . . . KIT EXP DATE _12/24/19 06/27/19.CO . . .The Influenza A & B assay is a rapid molecular in vitro diagnostic testutilizing an isothermal nucleic acid amplification technology for thequalitative detection of influenza A and B viral RNA.Negative results do not preclude influenza virus infection and should not beused as the sole basis for diagnosis, treatment or other patient managementdecisions. ID Date Data Source [id number] 06/15/2019 01:58:00 PM [facility] Patient Name: Kay Lomeli : 1965 Sex: F Pt Unit #: [id number] Location:AMB.DERM Provider: Visit Date/Time: 06/15/19 Primary Insurance: [facility] Secondary Insurance: Self Pay Intake Vital Signs [...] a note to return to daycare/school/sports/work: No [facility] Medical History (Updated 06/15/19 @ [...] history of other benign neoplasm SNOMED Code(s): 3956441612233 Category: Medical Plan - BONNY Jay: History [...] Code(s): L72.0 - Epidermal cyst SNOMED Code(s): 492328788 Category: Medical Plan - BONNY Jay: Cautery destruction (7) Inflamed skin tag: Status: Acute Code(s): L91.8 - Other hypertrophic disorders of the skin SNOMED Code(s): 684982296 Category: Medical Plan - BONNY Jay: Cautery destruction Orders Follow Up: yrly Electronically Signed By: <Electronically signed by Silvina L Werchinski PA> Date/Time Signed: 06/15/19 1437 Name Value Range Interpretation Code Description Data Karli rce(s) Supporting Document(s) ID Date Data Source [id number] 06/14/2019 01:15:00 PM EST [facility] Name Value Range Interpretation Code Description Data Karli rce(s) Supporting Document(s) Follow Up [facility] AOQZZj8qIjEHPwPqWWMiSzzHPHviROfxCCMvO4S6IBxwIm2EBOrwebXsHFWwLb6+CEMxCR9ymg5iNWUi gMy 2uNRWxXhukM2DkHCFdu16ZJGIxRReKSvCaZeFqDiSwDYJrZbA6QIP6SgHyYcmjPD2tMYN1MJGzZZdsGD ZvVWAhWHA3GngsPx9eXEdkHRotFh9OAR0zo9XvKYLaMOAdKqjVQBepUKruVDMsDTHiSMLsR913szXiZF 7MoPOfCUe5XGDpGxV3MVMhLnE6LKPpYsNsPaZdOXAw O4Qtz262scYejcE1YJ8PL1SbYZL6OUz8E6giCsSfBZFzGYHgRQ4rCzR7UKMfKw7XsRviIZFsHNJiCa4T aHc6OOF9XGVeXs1+Pj4+Rj0ehtQgZvsXKFPmHV5iuv64RH0DcCUvMX6QYPcjU24lYIbjQu15CHyrSZPn WzArJGt7Xk6mVtTme9LmJ8LjJWr8B6jKApupO0YbAB sjTB8gGCD3LRKtIg6+Ll7jMUWzMS29YEZuOUJDF8CfbrYhetUsNXf7HBFwTy8+Vm1bgrNfEonSTSAvIC 7unr98BL9CDC9qjHkrHnhlTpSoD94kwTQaE9gcZqCzZ2OhsEuyFLAhAU2gZ9GvNPzmWCMtZB1sfpHujP 7VqSq2ULJxDs5FaXD0RZFsC88hOWMdOJEBFJYbe0Ah UM1My9wjsnKvSKYnQW8AHUGbB9IVO0PjN8vqlFlbMHAtLO2UVJmmaJMwVKi2WS7WiOZgTJXzF17zaX6t KR99JDq+HgS3gpByeI1FmTnyh7UKJj+6080oizH5BWvjeUYdcSAPayp5m7gjeKBXAWp5a7j6w4sZB1aY E4JM/neeO/ou39oIBuLt4oomHcrD8d5E+5tpa8ak9r dQ22WBECBROFiZPMnPQSICVH7LGLTkLzQGN7UdnVizmZpLQprOLaZxvwmWybi0mPCm7Zk2aOlhJ4d9sC lynnette+JX5URNQVeu8/fNXWd7CBFZKvtzAa7emTqc6qu8en+5P7AQzbKO7TrZ1W0YffFAvhq5FKIsKLDqumL [file] sV1kYyH6/HAND OUTSIDE CUTTER/MZtd2nAEcV/ivLr2B+nlxVK85F8V4u [file] kle/KnAzQkpUs1MerBBF/0m+Cn5+Q29BGv2C1j7ZwDr2v706Ja8UPxioZMVg4fJ8DNunxDfElX0/Outside Salesperson/ [file] q5K7X0GGXHKG9ZqNNr3QNmgUwN0pZdtK+jrfK5cbp7gIIU0kRnhX57JNRgRJKArogpVXEVkxzxBXX/ XiuEKeDpgmoHdbmi7HpOnFVALs5AVLpNEsS0uLNKdq BsYV11T4KBW4eSJYtUHiRxC/WRF+kK053PpEUZ2S1QOrX8kon68yztFiCmQ02yYa56jdAMrNXgHZTvtm N2i3DKJOkQiOuNZEZPFL8Atqn9KpkFuYehcM0GLC/VA7mEdPyV3jz5wgJv/8jpOxONyqB8JXZaUBn1cn SQcHhGR1yvZO5ufX6ixHMfxgTkC4n02VhHM5nU+domi nOTiI3sB1i1x8DpEciFNXp2gb93kxfZ1SHNcpKsNTYn1u0snZJyCHJScDloPZTSKbJGiJ5S4ZRISzDIq yqIn3ilbaqViRdwhcewnZVo/r d engineer/nYEApPTlqpdpU+M6nwE6DZYrvHEOWwzD6PBaBW3NmAdXhm7yIjye 7U3E9Ji3irwCCV3S+Wkvetu0PyWoRzyf3JMpM1Kb/X J3vf1p5xfolkqIjlhsth61BeYWW31IhIuuQTu7WrfNwY58GyVqcZFCrNy1wjV1Js9NgeND0BKa3mXU6B mJgcnLwK+O8isEqB9eXCjCff1Sgj0Xn2hdqFTpdWggyzq1y/mjHkGoshEdw7zo3KbRa7fPUfrJAniAOg 4TdT5V+LEipQD9GMQAqgWX9QRNQHLkXCV6E6ZZP62o Lsq4g5HbSgQbD3xPqRlXu4jkcsDRf/A7j4aDbAM7KuMGkWhFapRFjbije6UyGU7an0/GSn8i3hmYlhFm SEShpnTGlm6ozosB8T1HDHI3jWD5d282XsuJXC2ky8FrEKd2/6QlEPqv3omcpMMXzytbNoWYXEHmW+Sm 9KDqNrSTy10lzV51KtwiNjw8W+9zWc3fYlEstPWUKL m7oQ1jr72GsXaqL7ckCZzXSuvac5IcLGMzwqcHUVP0+dFKvx20hK+U1emD8FixlAJkbMq0Zfx2FR2Iui 4RNfFLumwdVzsQ3rKrlulVD6ymNBkMtawgtT/b3IXq8vCitWEQyYRQ1DIQTZs4ZBCDpHhXkWLyDDrn5b +aqKU1888086+q0v2p8D1rMO8CCLjsYQi18N6vgmOW [file] /ettcleiT6SMO4yuJL1H8o/bhXuo2p1x+lab tech+U0areKnxUda286qP6U9GbUexT0pakwEwK9ubsDmUr4v [file] iXW6mMUs/IRqMTrpkS81pmO+digital developer+yI72MERBnGJSWP [file] 0Ir7gpkONHRiRkqTgrAX/kilzwOxAGVDtF0ZGpGJjhYaUAsggqLadzXD6ySKubA2ueO7upK/seH/Meño [file] Gaby+YRftV3Pkqa+8B2ypu25EbvBBsEanjdb7Sao8S/ jYC1XOpyXEGG018HCqRFTmW+X0p+CWVhutBMI1I++OZmbZuyfyE6Nu3pcOOAX4svoYBPDvrjLxH1wKYP nZNPqknBc6dtnDuPQIAVxgoqJXju02kSMfaxY75hzidyfyd6f5QPXk/YDxXqNAtvHs5HCyKr2Pr2UxwP uER/Mjv04DzQ0/ZzJOgsbDUV7gbOue6ywGgZQR/sJl /supply chain assistant//l6E53d3qkWzC+I3/YCrjnuR/K+WMAqiG2fL4nexJmEbmE7sbm0Nj2TWOlM4WxTgd22WPZxyO5I [file] b+/4zeHHRg8Y11UBl4cz6ntBlPA2BNBJ5Beh+CImC7r1cUCC6fd/vYtQlc+custom marine canvas fabricator+HwYg1ZsLtrW+0Ay4V [file] dwKgzJ1HBGsvL3VHP8Qg+dn7+R6aWbbEvEdB+Bhaskar/e zqIPzPWCXm3BHYyYTqa4xAmSg4HWFlTE5UbrsHxYdrSnhJAz3/FqddR6f9DpAwzTg42A5xZWk6paCajp yYOm5GdQwpIBBR9mIfGw1eNstpqly5bMii7LuWmVwzM6T/Na3Lh9FXyby1ZH3OwNtQtQHU8exyvLzgp0 Tl7jrUeR/J7UTPp9mrXforKo8c2Z9LvKuFh1/UTDlu KExrDecJIAxod0g0P9lb3uprip85Pi/vakA/nlotD+qzNVIYU7rjHZUf2krM4jT+lYvHmYRJ9VY6hy08 O4s2dB+Medical Records [file] Bt7LeVq4g+Director Of Radio Services/zLlP4d3EOgY55A5M6D3mR0vIqPSigWoV4pH3hW+z4u5pZcKauIpul5H5VrjChIVU8W [file] fUAqtNy3CiC9GVzU3/zZJEgbV9XjqCYXS6Fl29riXkv5lQQ8QbhYYiPe1OEY6qXXZ2YGRC39EPS/vp revenue cycle+D [file] uvmIkJy6P//vp revenue cycle/Sk0s0sHvB1KY5AtrYUhOaCG+KrQx [file] 5qHraq0Y7qLYIuWScJc266hRfnywIlUIKQZrH+senior systems software engineer/H [file] htEke0cv1VJkZiK+veterinary pharmacologist+Rdey0LCNp3lhIKX+MBHMgEOEtJC+rrkHDS5QgFLaGowZsC3ZiTqHwhgV+KPl [file] YFJWBQUxMXs9/+3wHIt81H/jHfqlKpKOmsw3TgC+Medical Records Custodian [file] JfgkZiiJY6IZNRYQYPCHv/ANDRÉS/DwxMLGwcXLxH+VHPzxrGuRDXRKeWwYaALBxC3K82u//7V1GAfTjsDj [file] zicuEqjAGuGL9GHnNeVS7unt4NPjV5TAV0bPOdNw9IDTB8YcA6II6AZTCXB3I= ID Date Data Source [id number] 04/29/2019 01:20:00 PM EST MEDENT ([facility]) Name Value Range Interpretation Code Description Data Karli rce(s) Supporting Document(s) Group A Strep Culture FULL REPORT IN L <SEE NOTE> MEDENT ([facility], [facility]) Negative. Procedure Social History Code Duration Value Status Description Data Source(s ) Smoking 10/06/2019 12:00:00 AM EDT Never Smoker completed Never S moker eCW1 ([facility]) Vital Signs ID Date Data Source UNK Name Value Range Interpretation Code Description Data Source(s) [place] body weight 125 [lb_av] 125 [lb_av] MEDEN T ([facility] Body weight 240.00 [lb_av] 240.00 [lb_av] MEDEN T ([facility] Body height 65 [in_i] 65 [in_i] [facility] ([facility] 5'5" Respiratory rate 16 [...] blood pressure 82 mm[Hg] 82 mm[Hg] eCW1 ([facility]) Systolic blood pressure 118 mm[Hg] 118 mm[Hg] e CW1 ([facility]) Body mass index (BMI) [Ratio] 42.39 kg/m2 42.39 kg/m2 eCW1 ([facility]) Body height 64 [in_i] 64 [in_i] eCW1 ([facility]) Body weight 247 [lb_av] 247 [lb_av] eCW1 ([facility]) Oxygen saturation in Arterial blood by Pulse oximetry 96 % 96 % MEDENT ([facility] Body mass index (BMI) [Ratio] 39.9 kg/m2 39.9 k g/m2 [facility] ([facility] [place] body weight 125 [lb_av] 125 [lb_av] MEDEN T ([facility] Body weight 240.00 [lb_av] 240.00 [lb_av] MEDEN T ([facility] Body height 65 [in_i] 65 [in_i] [facility] ([facility] 5'5" Respiratory rate 16 [...] Body height 65 [in_i] 65 [in_i] [facility] ([facility] 5'5" Respiratory rate 16 /min 16 /min MED[facility] ( [facility] Heart rate 98 /min 98 /min [facility] ([facility] Body temperature 98.0 [degF] 98.0 [degF] MED[facility] ([facility] Diastolic blood pressure 72 mm[Hg] 72 mm[Hg] [facility] ([facility] Systolic blood pressure 122 mm[Hg] 122 mm[Hg] M EDENT ([facility] Body mass index (BMI) [Ratio] 39.5 kg/m2 39.5 k g/m2 MEDENT ([facility], [facility]) Body height 64 [in_i] 64 [in_i] MEDENT ([facility]) 5'4" Body weight 230.00 [lb_av] 230.00 [lb_av] MEDEN T ([facility], [facility]) Body temperature 98.8 [degF] 98.8 [degF] MEDENT ([facility], [facility]) Oxygen saturation in Arterial blood by Pulse oximetry 98 % 98 % MED[facility] ([facility], [facility]) Respiratory rate 20 /min 20 /min MEDENT ( [facility], [facility]) Heart rate 104 /min 104 /min MED[facility] ([facility]) Diastolic blood pressure 85 mm[Hg] 85 mm[Hg] MEDENT ([facility], [facility]) Systolic blood pressure 135 mm[Hg] 135 mm[Hg] M EDENT ([facility], [facility]) Body mass index (BMI) [Ratio] 39.5 kg/m2 39.5 k g/m2 MEDENT ([facility], [facility]) Body height 64 [in_i] 64 [in_i] MEDENT ([facility], [facility]) 5'4" Body weight 230.00 [lb_av] 230.00 [lb_av] MEDEN T ([facility], [facility]) Body temperature 99.0 [degF] 99.0 [degF] MEDENT ([facility], [facility]) Oxygen saturation in Arterial blood by Pulse oximetry 99 % 99 % [facility] ([facility], [facility]) Respiratory rate 20 /min 20 /min [facility] ( [facility], [facility]) Heart rate 90 /min 90 /min [facility] ([facility], [facility]) Diastolic blood pressure 71 mm[Hg] 71 mm[Hg] [facility] ([facility], [facility]) Systolic blood pressure 127 mm[Hg] 127 mm[Hg] [facility] ([facility], [facility])
[2020-06-02 09:06] LABS: ALBUMIN 4.2 GM/DL (3.2-5.2); ALT/SGPT 32 U/L (12-78); BILIRUBIN,DIRECT 0.1 MG/DL (0.0-0.2); BILIRUBIN,TOTAL 0.8 MG/DL (0.2-1.0); BLOOD UREA NITROGEN 22 MG/DL (7-18); CALCIUM LEVEL 9.6 MG/DL (8.5-10.1); CARBON DIOXIDE LEVEL 31 MEQ/L (21-32); CHLORIDE LEVEL 102 MEQ/L (98-107); CK-MB VALUE MASS < 1.0 NG/ML (<3.6); CPK CREATINE PHOSPHOKINASE 109 U/L (26-192); CREATININE FOR GFR 0.93 MG/DL (0.55-1.30); FREE T4 1.27 NG/DL (0.76-1.46); GLOMERULAR FILTRATION RATE > 60.0 (>51); GLUCOSE, FASTING 105 MG/DL (70-100); LIPASE 131 U/L (73-393); MB/CK RELATIVE INDEX 0.92 (< OR =4); POTASSIUM SERUM 4.3 MEQ/L (3.5-5.1); SODIUM LEVEL 141 MEQ/L (136-145); TOTAL PROTEIN 8.1 GM/DL (6.4-8.2); TROPONIN I < 0.02 NG/ML (< 0.10)
[2020-06-02 09:29] LABS: INR 1.02; PROTHROMBIN TIME 13.6 SECONDS (12.5-14.3)
[2020-06-02 09:30] LABS: PARTIAL THROMBOPLASTIN TIME 28.6 SECONDS (24.2-38.5)
--- NOTE | 2020-06-02 10:01 | REP ---
INDICATION: PAIN. COMPARISON: None. TECHNIQUE: Left upper extremity duplex venous scanning. FINDINGS: The left internal jugular, axillary, brachial, basilic, and cephalic veins are anechoic and compressible in the left upper extremity. Color flow imaging is homogeneous. Spectral Doppler interrogation is unremarkable. There is no evidence of left upper extremity venous thrombosis. IMPRESSION: Negative left upper extremity duplex venous ultrasound. No evidence of venous thrombosis. <Electronically signed by Rasheed Mendoza > 06/02/20 0948
[2020-06-02 12:49] LABS: CK-MB VALUE MASS < 1.0 NG/ML (<3.6); CPK CREATINE PHOSPHOKINASE 76 U/L (26-192); MB/CK RELATIVE INDEX 1.32 (< OR =4); TROPONIN I < 0.02 NG/ML (< 0.10)
[2020-06-02 13:30] VITALS: BP 124/82
--- NOTE | 2020-06-02 16:40 | ECGEPIP ---
[facility] - ED Test Date: 2020-06-02 Pat Name: CARLOS ENRIQUE LOMELI Department: Room: - Gender: Female Traffic Technician: [place] : 1965 Requested By: Catherine Calvillo Order Number: [id number] Reading MD: Catherine Calvillo Measurements Intervals [place] Rate: 74 P: 179 [place]: 160 QRS: 212 QRSD: 97 T: 184 QT: 386 QTc: 430 Interpretive Statements SINUS RHYTHM ARM LEADS REVERSED ATYPICAL ECG Electronically Signed on 06-02-2020 16:39:47 EST by Catherine Calvillo
== END 2020-06-02 13:38 | disposition home or self-care (01) ==
LOC: M ED 08:00
DX: M94.0 Chondrocostal junction syndrome [Tietze] (principal); E03.9 Hypothyroidism, unspecified; K21.9 Gastro-esophageal reflux disease without esophagitis; Z88.1 Allergy status to other antibiotic agents; Z88.2 Allergy status to sulfonamides; Z88.8 Allergy status to other drugs, medicaments and biological substances; Z87.891 Personal history of nicotine dependence

== ENCOUNTER → 2020-12-13 | Outpatient (CLI) | payer OTHER ==
--- NOTE | 2020-12-13 09:39 | REPMRS ---
Patient History The patient states she had a clinical breast exam in December 2020. Family history of premenopausal breast cancer at age 41 in sister, ovarian cancer at age 50 or over in mother. No Hormone Replacement Therapy Patient states no breast complaints today. Patient has signed MRS History Sheet. Digital Woman Screen Mammo: December 13, 2020 - Exam #: [id number] Bilateral CC and MLO view(s) were taken. Technologist: Lizbeth Iraheta, Technologist Prior study comparison: October 06, 2019, bilateral digital woman screen mammo performed at [facility]. October 04, 2018, bilateral digital woman screen mammo performed at [facility]. October 01, 2017, digital woman screen mammo performed at [facility]. FINDINGS: There are scattered fibroglandular densities. The Volpara volumetric breast density category is:B. There has been no change in the appearance of the mammogram from the prior studies. There is a mild amount of scattered fibroglandular density which is fairly symmetric. There is no interval development of dominant mass, architectural distortion, or grouped microcalcification suggestive of malignancy. 3-D tomosynthesis shows no additional findings. Assessment: BI-RADS/ACR category 1 mammogram. Negative Mammogram. Recommendation Routine screening mammogram of both breasts in 1 year (for women over age 40). This patient's [facility] Lifetime Breast Cancer Risk is estimated at 17.9 %. This mammogram was interpreted with the aid of an FDA-approved computer-aided dectection system. Electronically Signed By: Rasheed Mendoza MD 12/13/20 0938
== END ==
LOC: M WHC 08:22
PROVIDERS: ATTEND Nurse Practitioner Women's Health
DX: Z12.31 Encounter for screening mammogram for malignant neoplasm of breast (principal); Z80.3 Family history of malignant neoplasm of breast

== ENCOUNTER → 2020-12-13 | Outpatient (REF) | payer OTHER | LOC: M SFHCWAGY 14:01 | PROVIDERS: ATTEND Nurse Practitioner Women's Health | DX: Z12.4 Encounter for screening for malignant neoplasm of cervix (principal); R87.610 Atypical squamous cells of undetermined significance on cytologic smear of cervix (ASC-US) | CPT/HCPCS: 87624; G0123 ==

== ENCOUNTER → 2021-09-10 | Outpatient (CLI) | payer OTHER | LOC: M WUC 11:06 | PROVIDERS: ATTEND Physician Assistant | DX: R07.9 Chest pain, unspecified (principal); R06.02 Shortness of breath ==

== ENCOUNTER → 2021-12-12 | Outpatient (CLI) | payer OTHER | LOC: M SLEEP HO 12:14 | PROVIDERS: ATTEND Internal Medicine Cardiovascular Disease | DX: R06.83 Snoring (principal) ==

== ENCOUNTER → 2022-04-02 | Outpatient (CLI) | payer OTHER | LOC: M WHC 13:45 | PROVIDERS: ATTEND Advanced Practice Midwife | DX: Z12.31 Encounter for screening mammogram for malignant neoplasm of breast (principal); Z80.3 Family history of malignant neoplasm of breast; Z80.41 Family history of malignant neoplasm of ovary ==

== ENCOUNTER → 2022-06-11 | Outpatient (REF) | payer OTHER ==
[2022-06-11 12:45] LABS: BASO # 0.1 10^3/uL (0.0-0.2); EOS # 0.2 10^3/uL (0.0-0.5); EOS % 2.4 % (0.0-3.0); HEMOGLOBIN 14.9 g/dl (12.0-15.5); LYMPH # 2.9 10^3/uL (1.5-5.0); LYMPH % 33.2 % (24.0-44.0); MEAN CORPUSCULAR HEMOGLOBIN 30.4 pg (27.0-33.0); MEAN CORPUSCULAR HGB CONC 32.4 g/dl (32.0-36.5); MEAN CORPUSCULAR VOLUME 93.9 fl (80.0-96.0); MONO # 0.5 10^3/uL (0.0-0.8); MONO % 5.4 % (2.0-8.0); NEUTROPHILS # 5.1 10^3/uL (1.5-8.5); NEUTROPHILS % 57.5 % (36.0-66.0); PLATELET COUNT, AUTOMATED 304 10^3/uL (150-450); WHITE BLOOD COUNT 8.9 10^3/uL (4.0-10.0)
[2022-06-11 12:54] LABS: THYROID STIMULATING HORMONE 0.463 uIU/ML (0.55-4.78)
[2022-06-11 12:55] LABS: ALKALINE PHOSPHATASE 66 U/L (46-116); ALT/SGPT 22 U/L (7.0-40); AST/SGOT 26 U/L (<34); BILIRUBIN,TOTAL 0.5 MG/DL (0.3-1.2); BLOOD UREA NITROGEN 22 MG/DL (9-23); CALCIUM LEVEL 9.3 MG/DL (8.5-10.1); CARBON DIOXIDE LEVEL 31 MMOL/L (20-31); CHLORIDE LEVEL 104 MMOL/L (98-107); CHOLESTEROL LEVEL 177 MG/DL (<200); CHOLESTEROL RISK RATIO 4.37 (<5); CREATININE FOR GFR 0.82 MG/DL (0.55-1.30); GLOMERULAR FILTRATION RATE > 60.0 (>51); GLUCOSE, FASTING 85 MG/DL (60-100); HDL CHOLESTEROL 40.5 MG/DL (>40); LDL CHOLESTEROL 106.9 MG/DL (<100); NON-HDL-C 137 MG/DL; POTASSIUM SERUM 4.2 MMOL/L (3.5-5.1); SODIUM LEVEL 139 MMOL/L (136-145); TRIGLYCERIDES LEVEL 148 MG/DL (<150)
== END ==
LOC: M LABDRWAD 12:27
PROVIDERS: ATTEND Physician Assistant
DX: I10 Essential (primary) hypertension (principal); E55.9 Vitamin D deficiency, unspecified; E03.9 Hypothyroidism, unspecified

== ENCOUNTER → 2022-07-22 | Outpatient (CLI) | payer OTHER | LOC: M RAD 10:30 | PROVIDERS: ATTEND Physician Assistant | DX: I95.9 Hypotension, unspecified (principal) ==

== ENCOUNTER → 2022-09-23 | Outpatient (REF) | payer OTHER ==
[2022-09-23 13:53] LABS: FREE T4 1.4 NG/DL (0.89-1.76)
[2022-09-23 13:54] LABS: THYROID STIMULATING HORMONE 1.62 uIU/ML (0.55-4.78)
== END ==
LOC: M LABDRWAD 12:26
PROVIDERS: ATTEND Physician Assistant
DX: E05.90 Thyrotoxicosis, unspecified without thyrotoxic crisis or storm (principal)

== ENCOUNTER → 2022-12-11 | Outpatient (CLI) | payer OTHER | LOC: M ADAMS 09:28 | PROVIDERS: ATTEND Nurse Practitioner Family | DX: K21.9 Gastro-esophageal reflux disease without esophagitis (principal); R19.4 Change in bowel habit; R14.3 Flatulence; R10.9 Unspecified abdominal pain ==

== ENCOUNTER → 2023-05-25 | Outpatient (REF) | payer OTHER ==
[2023-05-25 14:45] LABS: ALBUMIN 3.6 G/DL (3.2-5.2); ALKALINE PHOSPHATASE 66 U/L (46-116); ALT/SGPT 23 U/L (7.0-40); AST/SGOT 16 U/L (<34); BILIRUBIN,TOTAL 0.4 MG/DL (0.3-1.2); BLOOD UREA NITROGEN 28 MG/DL (9-23); CALCIUM LEVEL 9.9 MG/DL (8.5-10.1); CARBON DIOXIDE LEVEL 31 MMOL/L (20-31); CHLORIDE LEVEL 105 MMOL/L (98-107); CHOLESTEROL LEVEL 182 MG/DL (<200); CHOLESTEROL RISK RATIO 4.65 (<5); CREATININE FOR GFR 0.97 MG/DL (0.55-1.30); GLOMERULAR FILTRATION RATE > 60.0 (>51); GLUCOSE, FASTING 92 MG/DL (60-100); HDL CHOLESTEROL 39.1 MG/DL (>40); LDL CHOLESTEROL 109.3 MG/DL (<100); NON-HDL-C 142.9 MG/DL; SODIUM LEVEL 140 MMOL/L (136-145); TOTAL PROTEIN 6.7 G/DL (5.7-8.2); TRIGLYCERIDES LEVEL 168 MG/DL (<150)
[2023-05-25 14:47] LABS: THYROID STIMULATING HORMONE 2.122 uIU/ML (0.55-4.78)
[2023-05-25 15:09] LABS: HEMOGLOBIN 14.4 g/dl (12.0-15.5); MEAN CORPUSCULAR HEMOGLOBIN 30.5 pg (27.0-33.0); MEAN CORPUSCULAR VOLUME 95.3 fl (80.0-96.0); PLATELET COUNT, AUTOMATED 294 10^3/uL (150-450); RED BLOOD COUNT 4.72 10^6/uL (4.00-5.40); WHITE BLOOD COUNT 8.7 10^3/uL (4.0-10.0)
== END ==
LOC: M LABDRWAD 12:40
PROVIDERS: ATTEND Physician Assistant
DX: I10 Essential (primary) hypertension (principal); E03.9 Hypothyroidism, unspecified; E78.5 Hyperlipidemia, unspecified

== ENCOUNTER → 2023-05-25 | Outpatient (REF) | payer OTHER ==
[2023-05-25 14:39] LABS: MAGNESIUM LEVEL 1.8 MG/DL (1.8-2.4)
== END ==
LOC: M LABDRWAD 12:41
PROVIDERS: ATTEND Internal Medicine Gastroenterology
DX: K44.9 Diaphragmatic hernia without obstruction or gangrene (principal); K21.9 Gastro-esophageal reflux disease without esophagitis; R14.3 Flatulence; K57.30 Diverticulosis of large intestine without perforation or abscess without bleeding; Z79.899 Other long term (current) drug therapy; E56.9 Vitamin deficiency, unspecified

== ENCOUNTER → 2023-06-12 | Outpatient (CLI) | payer OTHER | LOC: M PLAIMG 07:27 | PROVIDERS: ATTEND Physician Assistant | DX: I77.810 Thoracic aortic ectasia (principal) ==

== ENCOUNTER → 2023-09-03 | Outpatient (REF) | payer OTHER | LOC: M PLALAB 15:26 | PROVIDERS: ATTEND Advanced Practice Midwife | DX: Z01.419 Encounter for gynecological examination (general) (routine) without abnormal findings (principal); Z12.4 Encounter for screening for malignant neoplasm of cervix; Z11.51 Encounter for screening for human papillomavirus (HPV) ==

== ENCOUNTER → 2023-09-03 | Outpatient (CLI) | payer OTHER | LOC: M WHC 14:42 | PROVIDERS: ATTEND Advanced Practice Midwife | DX: Z12.31 Encounter for screening mammogram for malignant neoplasm of breast (principal) ==

== ENCOUNTER → 2024-05-27 | Outpatient (REF) | payer OTHER ==
[2024-05-27 13:55] LABS: HEMATOCRIT 47.2 % (36.0-47.0); HEMOGLOBIN 15.4 g/dl (12.0-15.5); MEAN CORPUSCULAR HEMOGLOBIN 30.7 pg (27.0-33.0); MEAN CORPUSCULAR HGB CONC 32.6 g/dl (32.0-36.5); MEAN CORPUSCULAR VOLUME 94.2 fl (80.0-96.0); PLATELET COUNT, AUTOMATED 298 10^3/uL (150-450); RED BLOOD COUNT 5.01 10^6/uL (4.00-5.40); WHITE BLOOD COUNT 8.4 10^3/uL (4.0-10.0)
[2024-05-27 14:33] LABS: THYROID STIMULATING HORMONE 1.447 uIU/ML (0.55-4.78)
[2024-05-27 14:34] LABS: TOTAL 25(OH) VITAMIN D 76.1 NG/ML (20.0-100.0)
[2024-05-27 14:39] LABS: ALBUMIN 3.8 G/DL (3.2-5.2); ALKALINE PHOSPHATASE 59 U/L (35-104); ALT/SGPT 25 U/L (7.0-40); AST/SGOT 20 U/L (<34); BILIRUBIN,TOTAL 0.6 MG/DL (0.3-1.2); BLOOD UREA NITROGEN 22 MG/DL (9-23); CALCIUM LEVEL 9.4 MG/DL (8.5-10.1); CARBON DIOXIDE LEVEL 29 MMOL/L (20-31); CHLORIDE LEVEL 105 MMOL/L (98-107); CHOLESTEROL LEVEL 213 MG/DL (<200); GLOMERULAR FILTRATION RATE > 60.0 (>51); GLUCOSE, FASTING 86 MG/DL (60-100); HDL CHOLESTEROL 40.9 MG/DL (>40); LDL CHOLESTEROL 128.1 MG/DL (<100); NON-HDL-C 172.1 MG/DL; POTASSIUM SERUM 4.3 MMOL/L (3.5-5.1); SODIUM LEVEL 142 MMOL/L (136-145); TOTAL PROTEIN 7.5 G/DL (5.7-8.2); TRIGLYCERIDES LEVEL 220 MG/DL (<150)
== END ==
LOC: M LABDRWAD 13:27
PROVIDERS: ATTEND Physician Assistant
DX: E55.9 Vitamin D deficiency, unspecified (principal); E03.9 Hypothyroidism, unspecified; E78.5 Hyperlipidemia, unspecified; I10 Essential (primary) hypertension